=== PATIENT | male | born 1965 | race Caucasian/White ===

== ENCOUNTER 2016-07-28 13:45 | Inpatient (IN) | payer OTHER ==
[~2016-07-28] VITALS: Ht 177.8 cm; Wt 86.7 kg
[~2016-07-28 13:45] MED LIST: GABAPENTIN800 MG PO; MIXED AMPHETAMI30 M1 PO; REGLAN10 MG PO; SUBOXONE 8 MG-21 FIL PO
--- NOTE | 2016-07-28 13:55 | NUR ---
REQUESTING DETOX OFF HEROIN, STATES "I WANT TO ". HAS NO SPECIFIC PLAN, DENIES HI. HAS BEEN USING HEROIN "OFF AN ON" X 30 YEARS, UP TO 10 BAGS PER DAY. DENIES OTHER DRUG ABUSE OF ALCOHOL. STATES HE LOST HIS JOB, INSURANCE AND BOTH PARENTS IN THE PAST 6 MONTHS. [id number] WITH PATIENT. LAST USED HEROIN YESTERDAY; 5 BAGS.
--- NOTE | 2016-07-28 14:35 | NUR ---
SECURITY AT BEDSIDE FOR WANDING PT CHANGED INTO BLUE SCRUBS
--- NOTE | 2016-07-28 15:03 | NUR ---
BLDS DRAWN AND SENT
[2016-07-28 15:04] LABS: ABSOLUTE BASOPHIL COUNT 0 /CUMM (0.0-0.2); ABSOLUTE EOSINOPHIL COUNT 0 /CUMM (0.0-0.7); ABSOLUTE GRANULOCYTE CT 6.8 /CUMM (1.4-6.5); ABSOLUTE LYMPH COUNT 1.4 /CUMM (1.2-3.4); ABSOLUTE MONOCYTE COUNT 0.5 /CUMM (0.10-0.60); BASOPHIL % 0.4 % (0.0-2.0); EOSINOPHIL % 0.3 % (0-5); HEMATOCRIT 46.6 % (42-52); MEAN CORPUSCULAR HGB 28.6 PG (27.0-31.0); MEAN CORPUSCULAR HGB CONC 33.6 G/DL (33.0-37.0); MEAN PLATELET VOLUME 8.4 FL (7.4-10.4); PLATELET COUNT 303 /CUMM (130-400); RBC DISTRIBUTION WIDTH 14.2 % (11.5-14.5); RED BLOOD CELL CT 5.49 /CUMM (4.70-6.10); WHITE BLOOD CELL COUNT 8.8 /CUMM (4.8-10.8)
--- NOTE | 2016-07-28 15:20 | NUR ---
DR WEIR AT BEDSIDE FOR EVAL
--- NOTE | 2016-07-28 15:21 | ED PSYCHIATRIC COMPLAINT ---
History of Present Illness General Chief Complaint: Psychiatric Related Complaint Stated Complaint: PT IS HERE FOR POSTIVE SI Source: patient, old records Exam Limitations: no limitations Vital Signs & Intake/Output Vital Signs & Intake/Output Vital Signs Date Time Temp Pulse Resp B/P B/P Pulse O2 O2 Flow FiO2 Mean Ox Delivery Rate 07/29 1429 97.0 80 18 130/74 98 Room Air 07/29 1130 96.9 74 18 135/76 98 Room Air 07/29 0931 98.0 78 18 132/76 97 Room Air 07/29 0725 97.4 80 18 151/86 99 Room Air 07/29 0532 97.4 66 20 142/82 99 07/29 0145 97.6 69 18 150/73 96 07/28 2345 97.2 75 18 158/75 96 07/28 2259 Room Air 07/28 1909 78 188/81 ED Intake and Output 07/29 0000 07/28 1200 Intake Total Output Total Balance Patient 185 lb Weight Weight Reported by Patient Measurement Method Triage Note: REQUESTING DETOX OFF HEROIN, STATES "I WANT TO ". HAS NO SPECIFIC PLAN, DENIES HI. HAS BEEN USING HEROIN "OFF AN ON" X 30 YEARS, UP TO 10 BAGS PER DAY. DENIES OTHER DRUG ABUSE OF ALCOHOL. STATES HE LOST HIS JOB, INSURANCE AND BOTH PARENTS IN THE PAST 6 MONTHS. [id number] WITH PATIENT. LAST USED HEROIN YESTERDAY; 5 BAGS. Triage Nurses Notes Reviewed? yes HPI: Patient presents for evaluation of severe depression and "I feel like hanging myself". Patient states he is severely depressed is a combination of heroin addiction, job loss, recent of father and his son leaving the area. He denies attempting suicide but states he has been preoccupied with it almost nonstop. He has been trying to self detox from heroin over the past 6 weeks or so but states he keeps using again. (CARMELLA ANTONY,MALCOLM Roque) Allergies Coded Allergies: escitalopram (Intermediate, Muscle tightness in jaw and legs 07/29/16) "I had 'lockjaw' from it after 2 weeks." Reconcile Medications No Known Home Medications (MALCOLM ROJAS DO) Past History Travel History Traveled to [place] past 21 day No Medical History Any Pertinent Medical History? see below for history Cardiovascular: hypertension Psychiatric: depression History of MRSA: No History of VRE: No History of CDIFF: No Surgical History Surgical History: non-contributory Psychosocial History Who do you live with Sister Services at Home None What is your primary language Omani Tobacco Use: Current Daily Use Daily Tobacco Use Amount/Type: => 5 Cigarettes daily ETOH Use: denies use Illicit Drug Use: denies illicit drug use Family History Family History, If Any: No Known Family History. Hx Contributory? No (CARMELLA ANTONY,MALCOLM Rouqe) Review of Systems Review of Systems Constitutional: Reports: no symptoms. EENTM: Reports: no symptoms. Respiratory: Reports: no symptoms. Cardiovascular: Reports: no symptoms. GI: Reports: no symptoms. Genitourinary: Reports: no symptoms. Musculoskeletal: Reports: no symptoms. Skin: Reports: no symptoms. Neurological/Psychological: Reports: see HPI. Hematologic/Endocrine: Reports: no symptoms. Immunologic/Allergic: Reports: no symptoms. All Other Systems: Reviewed and Negative (CARMELLA ANTONY,MALCOLM Roque) Physical Exam Physical Exam General Appearance: SEE BELOW Neurological/Psychiatric: no motor/sensory deficits (SEE BELOW) Comments: General: Alert, calm, cooperative Head: Normocephalic, atraumatic Eyes: Normal inspection, no nystagmus, EOMI Ears: Normal inspection Nose: Normal inspection Throat: Moist mucosa Neck: Supple, no goiter Heart: Regular rate and rhythm, no murmurs rubs or gallops Lungs: Clear to auscultation bilaterally with good air entry Abdomen: Soft nontender nondistended, normal bowel sounds Chest: Nontender Extremities: Normal range of motion grossly, mild tremors present, no cyanosis clubbing or edema of the upper extremities Neurologic: cranial nerves II through XII grossly intact, speech clear, gait normal Psychiatric: No apparent delusions or hallucinations, no pressured speech or thought blocking SAD PERSONS Done? DEFERRED TO CRISIS (CARMELLA ANTONY,MALCOLM Roque) Progress Differential Diagnosis: DEPRESSION, BIPOLAR DISORDER, OPIATE ADDICTION Plan of Care: Orders Procedure Date/time Status Regular Diet 07/29 D Active Regular Diet 07/29 B Complete Lab Add-on Test 07/29 1454 Active Patient Data - inpatient psych 07/29 1448 Active Admit to inpatient psych 07/29 1448 Active Continuous Observation Monitor 07/29 0749 Active Vital Signs 07/29 UNK Active Nursing Misc 07/29 UNK Active Alternative Nursing Therapy 07/29 UNK Active Activity/Ambulation 07/29 UNK Active Continuous Observation Monitor 07/28 1850 Active TSH REFLEX 07/28 1457 Complete Current Medications Sig/Scott Start time Last Medication Dose Stop Time Status Admin Clonidine 0.1 MG TID 07/29 1600 UNVr 07/29 (Catapres) 1527 Acetaminophen 650 MG Q6P PRN 07/29 1530 UNVr (Tylenol) Al Hydroxide/Mg 30 ML Q4-6 PRN PRN 07/29 1530 UNVr Hydroxide (Maalox Plus) Gabapentin 300 MG Q4P PRN 07/29 1530 UNVr (Neurontin) Magnesium Hydroxide 30 ML AT BEDTIME PRN 07/29 1530 UNVr (Milk Of Magnesia) Trazodone HCl 50 MG AT BEDTIME NEED.. 07/29 1530 UNVr (Desyrel) Multivitamins 1 TAB DAILY 07/29 1523 UNVr 07/29 (Theragran Vitamins) 1548 Clonidine 0.1 MG Q6P PRN 07/29 1515 UNVr (Catapres) Baclofen 10 MG Q6P PRN 07/29 1500 UNVr (Lioresal 10MG Tablet) Dicyclomine HCl 20 MG Q6P PRN 07/29 1500 UNVr (Bentyl) Nicotine 21 MG DAILY 07/29 1456 UNVr 07/29 (Nicoderm) 1527 Comments: 07/28/2016 6:57:34 PM patient has been evaluated by crisis who recommends treatment for drug withdrawal and reevaluation in the morning (there appeared to be no beds available this evening). 07/28/2016 8:15:38 PM patient signed out to Dr. Arteaga at shift manager of change. (CARMELLA ANTONY,MALCOLM Roque) Hand-Off Endorsed To: MALCOLM ROJAS DO Endorsed Time: 0700 Pending: consult (DEMETRIUS ANTONY,ANTHONY Dave) Departure Departure Disposition: STILL A PATIENT Condition: Stable Clinical Impression Primary Impression: Suicide ideation Secondary Impressions: Cocaine abuse, Heroin abuse Referrals: PATIENT HAS NO PRIMARY CARE DR (PCP/Family) Departure Forms: Customer Survey General Discharge Information (CARMELLA ANTONY,MALCOLM Roque) Departure Prescriptions: Current Visit Scripts No Known Home Medications Comments 07/29/16 4:33 PM The patient was signed out to me by Dr. Arteaga at 7 AM. He has been accepted for admission to Inpatient Psychiatry. (MALCOLM ROJAS DO)
--- NOTE | 2016-07-28 16:06 | NUR ---
PTS BROTHER IN LAW PHILLIP WOULD LIKE TO SPEAK TO CRISIS. [phone]
--- NOTE | 2016-07-28 19:10 | NUR ---
MEDICATED WITH ATIVAN AND CLONIDINE PER eMAR FOR INCREASE IN AGITATION AND ANXIETY. BROTHER IN LAW AT BEDSIDE
--- NOTE | 2016-07-28 19:36 | ED PSYCH CRISIS CONSULTATION ---
See Addendum Crisis Consult Basic Assessment Date of Consult: 07/28/16 Responsible Person/Accompanied By: Brother Insurance Authorization: Insurance #1: Insurance name: SELF-PAY Phone number: Policy number: Group number: Authorization number: n/a ED Provider: Patient's ED Provider: MALCOLM WEIR MD Primary Care Physician: Patient's PCP: PATIENT HAS NO PRIMARY CARE DR PCP's Phone Number: Current Psychiatrist: none Patient's Quote: "I feel like dying" Present Illness: Pt is a 50 year old male requesting detox from Heroin. Pt reports a history of heroin use, on and off, for the past 30 years. He was admitted to [facility] in 2010 for Opioid Dependence and has also participated in [facility] and OP repeated times from 2010 to 2014. Pt reports that his most recent relapse was about two years ago and that he has not been in either substance abuse or psychiatric treatment since then. Pt reports that in the last six months, he has also had a number of psychosocial stressors, including the loss of his job of five years, the loss of his health insurance, the deaths of both parents and his adult son moving to [place]. Pt. also reports that his girlfriend with whom he has been living for the past 10 years has told him that he cannot come back to live with her. His only support appears to be his brother who was here in the ED with him. Pt. reports that he started trying to detox on his own about six weeks ago, but only makes it about two days without using. He reports his last use was yesterday, about 5 bags worth. Pt. reports that he is currently going through withdrawals and feels achy, sick to his stomach and "cannot think straight". Pt does appear distracted, fidgety and somewhat agitated. Pt reports that although he has no thoughts of actually killing himself, he "feels like dying". Crisis also spoke to pt's girlfriend via telephone who says that if pt. does not get help, she thinks that he will kill himself. Pt denies any past suicide attempts. Patient's Address: [address] [place] [address] Other Phone Number: Who Do You Live With? Sister Family/Informants Interviewed: Girlfriend (Maria Del Rosario) [phone], also spoke with Brother about POC. Allergies - Coded Allergies: NO KNOWN ALLERGIES (11/20/10) Laboratory Results: Laboratory Tests 07/28/16 1612: Urine Opiates Screen > 4000.00 H, Methadone Screen 77, Barbiturate Screen < 60, Ur Phencyclidine Scrn 7.50, Amphetamines Screen 503, U Benzodiazepines Scrn < 85 , Urine Cocaine Screen > 1000 H, Urine Cannabis Screen 5.50 07/28/16 1457: Anion Gap 15, Estimated GFR > 60, BUN/Creatinine Ratio 8.0, Glucose 111 H, Calcium 9.7, Total Bilirubin 0.6, AST 26, ALT 37, Alkaline Phosphatase 55, Total Protein 7.8, Albumin 4.5, Globulin 3.3, Albumin/Globulin Ratio 1.4, CBC w Diff NO MAN DIFF REQ, RBC 5.49, MCV 85.0, MCH 28.6, RDW 14.2, MPV 8.4, Gran % 78.0 H , Lymphocytes % 15.9 L, Monocytes % 5.4, Eosinophils % 0.3, Basophils % 0.4, Absolute Granulocytes 6.8 H, Absolute Lymphocytes 1.4, Absolute Monocytes 0.5, Absolute Eosinophils 0, Absolute Basophils 0, PUBS MCHC 33.6, Serum Alcohol < 10.0 (GRETTA VIERA LCSW) Basic Assessment Date of Consult: 07/29/16 Responsible Person/Accompanied By: [id number], Insurance Authorization: Insurance #1: Insurance name: SELF-PAY Phone number: Policy number: Group number: Authorization number: [place] [id number] [facility] [id number] ED Provider: Patient's ED Provider: CARMELLA ANTONY,MALCOLM Roque, Otoniel Zee MD Primary Care Physician: Patient's PCP: PATIENT HAS NO PRIMARY CARE DR PCP's Phone Number: Chief Complaint: Suicidal ideation with vague plans Patient's Quote: "I'm afraid to kill myself, but I do not want to live" Present Illness: 50 M to ED 07/28/16, 1355 CC requesting heroin detox, and stating that he wants to , without plan. Multiple stressors including of both parents, loss of job, loss of health insurance, and probable loss of housing - house co-owned with his girlfriend, who does not want him back. The patient has been having worsening depression, and has had "visions of the sharri of my life." Prior suicide attempt by OD, per Winter MARTINO, in 2016. The [id number], to his sister Pat, states that he cannot control the images in his head, and is fearful that the patient will go through with suicide. The brother states that he is welcome to live with him, but has concerns. He is also willing to take the patient to appointments or to rehab/ [facility]. Patient's Address: [address] [place] [address] Other Phone Number: Who Do You Live With? Significant Other (Now barred from returning) Family/Informants Interviewed: BrotherJovon, 07/29/16. See collateral note., Winter DUNCAN, on 07/29/16 Current Medications - No Known Home Medications Laboratory Results: Laboratory Tests 07/28/16 1612: Urine Opiates Screen > 4000.00 H, Methadone Screen 77, Barbiturate Screen < 60, Ur Phencyclidine Scrn 7.50, Amphetamines Screen 503, U Benzodiazepines Scrn < 85 , Urine Cocaine Screen > 1000 H, Urine Cannabis Screen 5.50 07/28/16 1457: Anion Gap 15, Estimated GFR > 60, BUN/Creatinine Ratio 8.0, Glucose 111 H, Calcium 9.7, Total Bilirubin 0.6, AST 26, ALT 37, Alkaline Phosphatase 55, Total Protein 7.8, Albumin 4.5, Globulin 3.3, Albumin/Globulin Ratio 1.4, CBC w Diff NO MAN DIFF REQ, RBC 5.49, MCV 85.0, MCH 28.6, RDW 14.2, MPV 8.4, Gran % 78.0 H , Lymphocytes % 15.9 L, Monocytes % 5.4, Eosinophils % 0.3, Basophils % 0.4, Absolute Granulocytes 6.8 H, Absolute Lymphocytes 1.4, Absolute Monocytes 0.5, Absolute Eosinophils 0, Absolute Basophils 0, PUBS MCHC 33.6, Serum Alcohol < 10.0 (NORMA VILLA APRN) Addendum Addendum 50 M to ED 07/28/16 @ 1085 with CC reporting SI with vague plan and requesting detox from heroin. He was brought to the ED by his [id number], Jovon, [phone]. 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 He is not close to his step-father, Edgard Villavicencio, who lives in [place]. The patient goes to [employer] meetings, and has a sponsor in [place]. He does note drink alcohol, per his report. FPHx: Biological mother and maternal g'mother - depression. Biological father - alcohol use disorder/drugs. MSE: Patient seen today, 07/29/16 at 0810: A+OX4 Denies AVH, and presents no preethi delusions. Denies active SI/HI, but "I'm having visions of the end of my life. I'm afraid to kill myself, but I don't want to live." Endorses helplessness, hopelessness and worthlessness. He reports a history of opiate use disorder, ADHD, PTSD and severe depression. (DAISY BUTT,NORMA Chris) Past History Past Medical History Cardiovascular: hypertension Psychiatric: depression Past Surgical History Surgical History: non-contributory Psychosocial History Strengths/Capabilities: hx of employment, asking for help, support of brother and sister Physical Limitations (Interventions): none known Psychiatric Treatment History Psych Treatment Psychiatric Treatment Yes Inpatient Treatment Yes Outpatient Treatment Yes Location of Treatment IP - [facility]; OP - [facility] Reason for Treatment Depression, SI, Opioid Dependence, Opioid Withdrawal Dates of Treatment 2010 - 2014 Response to Treatment repeated relapses and detox's Diagnosis by History: Opiod Dependence, Substance-induced Mood D/O Substance Use/Abuse History Drug Use/Abuse Substances Used/Abused Yes Substance Used/Abused Heroin First Use 30 years Last Used yesterday How much used/taken 5 bags How often every two days For how long two years Route of use IV Substance Abuse Treatment Substance Abuse Treatment Past Substance Abuse TX Yes Inpatient Treatment Yes Outpatient Treatment Yes Location of Treatment [facility] IP, IOP and OP [place] Reason for Treatment Opioid Detox Dates of Treatment Multiple, last IP in 2010, last OP in 2014 Response to Treatment Repeated relapses Comments: n/a (GRETTA VIERA LCSW) Past Medical History Cardiovascular: hypertension Past Surgical History Surgical History: non-contributory Psychosocial History Strengths/Capabilities: Mechanical, artistic (draws, paints, carves) Physical Limitations (Interventions): None Psychiatric Treatment History Psych Treatment Psychiatric Treatment Yes Inpatient Treatment Yes Outpatient Treatment Yes Location of Treatment [facility] and IOP/OPS Reason for Treatment Depression PTSD ADHD Opiate use disorder Dates of Treatment 2010, 2014 Response to Treatment Improved for a short while Substance Use/Abuse History Drug Use/Abuse Substances Used/Abused Yes Substance Used/Abused Heroin 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 How often Daily Substance Abuse Treatment Substance Abuse Treatment Past Substance Abuse TX Yes Inpatient Treatment Yes Outpatient Treatment Yes Location of Treatment [place] August-October 2015 Reason for Treatment Opiate use disorder Response to Treatment No aftercare program, per GF, Winter Comments: Patient has difficulty in staying focused on treatment goals, per his report and family report (DAISY BUTT,NORMA Chris) Current Mental Status Mental Status Orientation: Person, Place, Situation Affect: Anxious, Sad Speech: WNL Neuro-vegetative: Anhedonia, Concentration Poor, Helpless, Sleep Disturbance Appearance Appearance- Dress/Hygiene: WNL Behaviors Thought Process: WNL Thought Content: WNL Memory: Impaired Insight: Fair SI/HI Risk Assessment Past Suicidal Ideation/Attempts Yes (thoughts and plan, no attempts) Current Suicidal Ideation/Att Yes (passive thoughts) Past Homicidal Ideation/Att: No Current Homicidal Ideation/Attempts No Degree of Intent: Thoughts/No Intent Danger To: Self Gravely Disabled: Poor Impulse Control, Poor Judgment Risk Factors: high anxiety/distress, SA/MH hospitalized, substance abuse, poor impulse control, male, limited support Lethality Ratin PTSD Checklist PTSD Done? patient declined ED Management Sitter: Yes Restraints: No (GRETTA VIERA LCSW) Mental Status Orientation: Person, Place, Situation Affect: Flat Speech: WNL Neuro-vegetative: Anhedonia, Appetite Decreased, Energy Decreased, Helpless, Loss of Interest, Sleep Disturbance Behaviors Thought Process: Irrational Thought Content: Thought Blocking Memory: Impaired Insight: Poor SI/HI Risk Assessment Past Suicidal Ideation/Attempts Yes Current Suicidal Ideation/Att Yes Past Homicidal Ideation/Att: No (Denies) Current Homicidal Ideation/Attempts No (Denies) Degree of Intent: Various plans, as reported by brother Danger To: Self Gravely Disabled: Lack of Insight, Poor Judgment Risk Factors: SA/MH hospitalized, substance abuse, isolate/no social support, lack of outcome concern, male, limited support Lethality Ratin PTSD Checklist PTSD Score: PTSD Score: Response Value Disturbing memories,thoughts,images of stressful experience? Moderately 3 Disturbing dreams of stressful experience from past? A little bit 2 Suddenly acting/feeling as if reliving stressful experience? Moderately 3 Unpleasant feeling when reminded of stressful experience? Quite a bit 4 Physical reactions when reminded of stressful experience? Moderately 3 Avoid thinking/talking of stressful exp. to avoid reactions? Extremely 5 Avoid activities/situations that remind of stressful exp.? Quite a bit 4 Trouble remembering important parts of stressful experience? Moderately 3 Loss of interest in things that you used to enjoy? Extremely 5 Feeling distant or cut off from other people? Extremely 5 Feeling emotionally numb/unable to love those close to you? Quite a bit 4 Feeling as if your future will somehow be cut short? Quite a bit 4 Trouble falling or staying asleep? Quite a bit 4 Feeling irritable or having angry outbursts? Moderately 3 Having difficulty concentrating? Extremely 5 Being super alert or watchful on guard? Quite a bit 4 Feeling jumpy or easily startled? Quite a bit 4 Total 65 ED Management Sitter: Yes Restraints: No (NORMA VILLA APRN) DSM5/PS Stressors/Medical Prob Diagnosis' (DSM 5, Stressors, Medical): F11.20 - Opiate Use D/O, severe, F32.9 - Unspecified Depression. Stressors - Unemployed, recent deaths of both parents, separation from son, recent relapse. Medical - HTN. Current GAF: 24 Comments: Pt recently relapsed on heroin, has multiple psycho-social stressors and is having passive SI. (GRETTA VIERA LCSW) Diagnosis' (DSM 5, Stressors, Medical): F11.20 Opiate use d/o severe F32.9 Depression, unspecified - multiple stressors. F43.10 PTSD By history and report ADHD Current GAF: 21 (NORMA VILLA APRN) Departure Disposition Psych Medical Clearance Date: 07/28/16 Medically Cleared at: 1725 Time Started: 1724 Time Ended: 1754 Psychiatrist Consulted: Lindsay ANTONY, Saida Disposition Established: 07/28/16 Time Disposition Established: 1754 Plan for Disposition - Modality: H/O in ED, re-eval in AM Facility: [facility] Contact: n/a Telephone: n/a Rationale for Disposition: Pt. expressed passive SI, has multiple stressors and is going through Opioid withdrawals. Pt is therefore at current risk of harm to self and needs admission. Since there are no beds available tonight, pt. will be h/o in ED and re-evaluated by Crisis in AM. Additional Instructions: n/a Referrals PATIENT HAS NO PRIMARY CARE DR (PCP/Family) (GRETTA VIERA LCSW) Disposition Psych Medical Clearance Date: 07/29/16 Time Started: 809 Time Ended: 1533 Disposition Established: 07/29/16 Time Disposition Established: 1533 Plan for Disposition - Modality: Inpatient Psychiatry Facility: [facility] Rationale for Disposition: Suicidal with plans including OD and cutting/exsanguination in bathroom Type of IP Admission: PEC Additional Instructions: Patient may sign in voluntarily. (NORMA VILLA APRN)
--- NOTE | 2016-07-28 19:45 | NUR ---
NICODERM PATCH 21MG APPLIED TO RIGHT UPPER INNER ARM PER EMAR. PT CALM AND COOPERATIVE IN HALLWAY. SITTER AT BEDSIDE.
--- NOTE | 2016-07-28 20:15 | NUR ---
PT SEATED ON STRETCHER IN HALLWAY. PT IS BEING CALM AND COOPERATIVE. SITTERS AT BEDSIDE.
--- NOTE | 2016-07-28 22:58 | NUR ---
PT MEDICATED WITH TRAZADONE 100MG FOR SLEEP. PT REQUESTING MOTRIN FOR SCIATICA PAIN.
--- NOTE | 2016-07-28 23:06 | NUR ---
chief lock operator evaluated pt. +SI and feeling hopeless. Pt is a holdover and reevaluated for inpatient admission.
--- NOTE | 2016-07-28 23:14 | NUR ---
PT MEDICATED WITH MOTRIN 600MG FOR BACK PAIN
--- NOTE | 2016-07-28 23:30 | NUR ---
ASSUMED CARE FROM KRAIG CLARKE
--- NOTE | 2016-07-29 00:08 | NUR ---
PT SLEEPING. RESP UNLABORED. NO APPARENT DISTRESS. SITTER AT BEDSIDE
--- NOTE | 2016-07-29 01:30 | NUR ---
PT SLEEPING. RESP UNLABORED. SITTER AT BEDSIDE.
--- NOTE | 2016-07-29 03:56 | NUR ---
PT SLEEPING. RESP UNLABORED. SITTER AT BEDSIDE
--- NOTE | 2016-07-29 05:51 | NUR ---
PT SLEEPING. EASILY AROUSED TO VERBAL STIMULATION. RESP UNLABORED. SITTER PRESENT
--- NOTE | 2016-07-29 07:23 | NUR ---
ASSUMED CARE AT THIS TIME , PT AWAKE AND ALERT SITTING UP ON STRETCHER EATING BREAKFAST AT THIS TIME, PT COMPLAINS OF FEELING "CRAPPY" STATES THAT HE IS WITHDRAWING FROM OPIODS. ALSO STATES THAT HE HAS 7/10 LOW BACK PAIN, STRETCHER BACK REPOSITIONED FOR COMFORT,
--- NOTE | 2016-07-29 07:34 | NUR ---
PT MEDICATED WITH MOTRIN 600 MG PO PER ORDER FOR LOW BACK PAIN
--- NOTE | 2016-07-29 08:36 | NUR ---
PT REMAINS AWAKE ALERT AND CALM AND COPERATIVE
--- NOTE | 2016-07-29 09:29 | NUR ---
PT REMAINS CALM AND COPERATIVE. STATES THAT HIS LOW BACK PAIN IS BETTER AFTER MEDICATION
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
--- NOTE | 2016-07-29 11:13 | NUR ---
PT AWAKE ALERT AND ORIENTED , SITTING UP ON STRETCHER EATING LUNCH , PT ASKING FOR ATIVAN AND CLONIDINE, DR ROJAS AWARE AND STATES THAT PT CAN HAVE THE CLONIDINE AT THIS TIME AND THAT HE WILL GO SPEAK WITH PT
--- NOTE | 2016-07-29 12:23 | NUR ---
PER CRISIS THEY ARE DOING A BEDSEARCH FOR PT AND THAT PT IS REQUESTING CLONIDINE. CRISIS MADE AWARE THAT PT WAS MEDICATED AROUND 11 AM WITH CLONIDINE. PT REMAINS CALM AND COPERATIVE FOR THIS NURSE
--- NOTE | 2016-07-29 13:38 | NUR ---
PT MEDICATED PER ORDER WITH ATIVAN 1 MG PO PER ORDER. PER BENNY FROM CRISIS PT IS NOW ON PEC
--- NOTE | 2016-07-29 14:07 | NUR ---
PT TO BE ADMITTED TO [facility] .
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
--- NOTE | 2016-07-29 15:41 | NUR ---
ASSUMED CARE OF THIS PT FROM TRICIA HAMLIN. PT CALM AND COOPERATIVE AT THIS TIME. PT MEDICATED WITH CLONIDINE 0.1MG AND NEW NICODERM 21MG PATCH APPLIED TO RIGHT UPPER INNER ARM. OLD PATCH REMOVED BY THIS RN. PT AWAITING TRANSFER DOWN TO [facility]. SITTER AT BEDSIDE FOR SAFETY.
--- NOTE | 2016-07-29 15:48 | NUR ---
PT GIVEN MULTIVITAMIN PER EMAR.
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
--- NOTE | 2016-07-29 19:18 | NUR ---
Pt is a 50 y/o male on PEC admit from the ED for cocaine and heroine abuse/depedence. Pt arrived a & o x4, flat, anxious and cooperative. Appearance and behavior appropriate. Pt verbalized the desire to get clean and look for a job. Pt is coherent and appears to have insight into his drug addiction. Pt states he has no medical history and has NKDA either. Oriented to the unit on q15 minutes checks for safety.
[2016-07-29 20:07] VITALS: BP 142/88
--- NOTE | 2016-07-30 04:46 | NUR ---
Slept well overnight, no complaints offered.
[2016-07-30 07:55] VITALS: BP 109/71
--- NOTE | 2016-07-30 11:02 | NUR ---
PT IS COMPLIANT AND COOPERATIVE WITH UNIT RULES. PT IS ISOLATIVE IN ROOM FOR MOST OF THE SHIFT. PT DOES COME OUT WHEN ASKED, FOR VITALS AND MEDS. PT MOOD IS STABLE WITH A CONSTRICTED AFFECT. PT IS NOT ATTENDING GROUPS. PT DENIES SI THOUGHTS.
[2016-07-30 12:12] VITALS: BP 95/54
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
--- NOTE | 2016-07-30 15:35 | SOCIAL WORKER PROG NOTE PSYCH ---
Social Work Progress Note Progress Note Pt reports he completed the application and was approved for [place] insurance and has a temp id. Pt reports he is not feeling well, he is antsy and impatient is withdrawing from opiates. Pt is on a PEC. Pt requesting to meet with the HARD CANDY SPINNER, he states "I always get cuckoo feeling when Im trying to get off the opiates, which is why I' m here". Pt reports he just bought a house and was doing well until relapse.
--- NOTE | 2016-07-30 15:47 | SOCIAL WORKER TX PLAN PSYCH ---
Treatment Plan - Please Document: - Evidence that there is ongoing collaboration between - the patient and the interdisciplinary team, - including the patient's active participation and - responsibility for engaging in the treatment regimen, - and that the treatment plan is individualized and - relevant to the patient's conditions. - Treatment plan should reflect documentation indicating - that all active therapeutic efforts are included. Strengths/Capabilities: hx of employment, asking for help, support of brother and sister Likes to do mechanical and woodworking; artistic. Physical Limitations (Interventions): none known Patient Identified Trmt Goals: "to feel right and get clean" Discharge Plan: Rehab/ Outpatient Problem/Goals #1 Problem #1: suicidal ideation Interventions: Learn ways to manage anxiety symptoms accordingly and identify coping skills to prevent suicidal ideation from occurring due to anxious/depressed feelings. Learn ways to manage medications accordingly and identify positive supports to manage unusual symptoms that may occur. Learn ways to manage depressive symptoms accordingly and identify positive supports to manage life stressors and mood fluctuations. Modalities: group/individual Problem/Goals #2 Problem #2: alcohol dependence/abuse Interventions: Learn ways to manage cravings to use substances accordingly and identify coping skills to prevent relapse from occurring due to anxious/depressed feelings. Modalities: group/individual DSM5/PS Stressors/Medical Prob Diagnosis' (DSM 5, Stressors, Medical): F32.9 Depression, unspecified - multiple stressors. F11.20 Opiate use d/o severe F43.10 PTSD Pt reports Hx ADHD Current GAF: 21 Treatment Team - Responsibilities of members of the treatment team include: - Medication Management- MD or FLYER BUILDER - Medication Administration and Monitoring- Nurse - Group Therapy- Occupational Therapist - 1:1 Therapy,Disch Planning,family involvement-Subscription Crew Leader
[2016-07-30 15:49] VITALS: BP 119/67
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
[2016-07-30 20:35] VITALS: BP 100/65
--- NOTE | 2016-07-30 22:02 | NUR ---
PATIENT ALERT AND ORIENTED X3, CALM AND COOPERATIVE; PATIENT REPORTS FEELING MUCH BETTER SINCE HIS MEDICATIONS WERE ADJUSTED TODAY WITH THE METHADONE TAPER BEING STARTED; HE ATTENDED AND PARTICIPATED IN WRAP UP GROUP; VITAL SIGNS WNL; NO WITHDRAWAL SYMPTOMS.
--- NOTE | 2016-07-31 06:34 | NUR ---
PATIENT SLEPT ALL NIGHT.
[2016-07-31 08:02] VITALS: BP 120/68
--- NOTE | 2016-07-31 08:18 | CP SOUTH PROGRESS NOTE PSYCH ---
Psych (Inpt) Progress Note Progress Note Include the following elements, when applicable: Involvement in the active treatment of the patient with behavioral observations of the patient and the patient's response to the treatment. Review of the ongoing treatment process in the context of the treatment plan. Indication of how multi-disciplinary staff members are carrying out the treatment plan. Plans for future interventions and recommendations for revision of the treatment plan. Liaison with other physicians/providers. Progress Note: I discussed this patient's progress to date, current mental status, treatment process in the context of the treatment plan, and discharge planning with staff/ team in the daily morning inpatient team meeting. I also met with the patient myself in individual session. S: "I'm feeling physically better today." O: Current Medications Sig/Scott Start time Last Medication Dose Route Stop Time Status Admin Acetaminophen 650 MG .STK-MED ONE 07/30 0855 DC PO 07/30 0856 Acetaminophen 650 MG Q6P PRN 07/29 1530 AC 07/30 PO 0901 Al Hydroxide/Mg 30 ML Q4-6 PRN PRN 07/29 1530 AC Hydroxide PO Baclofen 10 MG Q6P PRN 07/29 1500 AC 07/30 PO 2144 Clonidine 0.1 MG TID 07/29 1600 DC 07/30 PO 0901 Clonidine 0.1 MG Q6P PRN 07/29 1515 AC 07/30 PO 0704 Dicyclomine HCl 20 MG Q6P PRN 07/29 1500 AC 07/30 PO 0902 Fluoxetine HCl 10 MG 07/31 0800 AC 07/31 PO 0809 Gabapentin 400 MG 0800,1400,2000 07/30 2000 AC 07/31 PO 0809 Gabapentin 300 MG Q6-PRN PRN 07/30 1900 AC 07/30 PO 2145 Gabapentin 400 MG ONE TIME ONE 07/30 1800 DC 07/30 PO 07/30 1801 1756 Gabapentin 300 MG Q4P PRN 07/29 1530 DC 07/30 PO 0902 Ibuprofen 800 MG TID PRN 07/30 1345 AC 07/31 PO 0811 Magnesium Hydroxide 30 ML AT BEDTIME PRN 07/29 1530 AC PO Methadone HCl 10 MG 08/02 0800 AC PO 08/02 0801 Methadone HCl 20 MG 08/01 0800 AC PO 08/01 0801 Methadone HCl 30 MG 07/31 0800 DC 07/31 PO 07/31 0801 0810 Methadone HCl 40 MG ONE TIME ONE 07/30 1615 DC 07/30 PO 07/30 1616 1612 Multivitamins 1 TAB DAILY 07/29 1523 AC 07/31 PO 0809 Nicotine 21 MG DAILY 07/29 1456 AC 07/31 TOP 0809 Trazodone HCl 50 MG .STK-MED ONE 07/30 2238 DC PO 07/30 223 Trazodone HCl 50 MG AT BEDTIME NEED.. 07/29 2200 AC 07/30 PO 2244 Vital Signs Date Time Temp Pulse Resp B/P B/P Pulse O2 O2 Flow FiO2 Mean Ox Delivery Rate 07/31 0802 96.5 79 120/68 07/30 2035 98.0 76 100/65 07/30 1549 71 119/67 07/30 1212 86 95/54 07/30 0901 77 109/71 A: Chart, progress notes, labs, VS and medication list reveiwed. Vital signs within normal limits. No new lab results today. Met with patient this morning. Presented A&Ox3. Speech was normal in rate, tone, and volume. Affect was constricted, non-labile. Mood was "not bad." He reported feeling physically better than yesterday since initiation of Methadone taper - denied chills, restlessness, anxiety, insomnia, acute aches. Reported completing ADLs, improved appetite, and sleeping well overnight. He shared on the triggers which led to present hospitalization: the of his father in [place] 2 months ago from prostate and colon Levi; the of his mother in [place] 4 months ago from uterine CA; the departure of his 17-year old son to [place] with the patient's ex-; and the loss of his job 6 months ago which he had for 5 years and the subsequent losses of health insurance and unemployment. He reported that since these events, he has grown more isolative and resorted to polysubstance abuse; endorsing intermittent "dark visions/thoughts" of him hanging himself and cutting himself. He denied ever acting on these thoughts, denied prior suicide attempts and expressed a fear of suicide. He denied current passive and active suicidal ideation, plans or intent. Denied homicidal ideation. Denied auditory and visual hallucinations. Thought process was linear and goal directed, thought content was approproriate. Congition was grossly intact. Insight and judgement were fair. Checked in with patient later today, he reported tolerating Prozac well, denied untoward medication effects. He was agreeable to increasing to 20mg QAM tomorrow to further target depression. P: 1. Conitnue monitoring on unit for safety, mood, opiate withdrawal, and suicidal ideation. 2. Continue methadone taper as ordered. 3. Increase Prozac to 20mg tomorrow morning to further target depression. 4. Increase Gabapentin to 600mg TID for anxiety (from 400mg TID). 5. Dispo planning per primary team.
[2016-07-31 12:40] VITALS: BP 126/89
--- NOTE | 2016-07-31 13:02 | NUR ---
PT IS PRESENT ON UNIT AND SOCIAL WITH PEERS AND STAFF, CAN BE LOUD AT TIMES BUT OVERALL APPROPRIATE THUS FAR, MOOD IS STABLE WITH FULL RANGE AFFECT, VSS, HAS ATTENDED GROUPS ALL DAY, REPORTED IN PLANNING MEETING "ALRIGHT" MOOD WITH HIS MOOD IMPROVING, GOAL IS "BE POSITIVE AROUND NEGATIVE PEOPLE", + APPETITE ABD SLEEP.
--- NOTE | 2016-07-31 14:19 | SOCIAL WORKER PROG NOTE PSYCH ---
Social Work Progress Note Progress Note Pt signed release and would like to have his sister and brother attend family session. I will call to arrange. Pt states he is heavily involved in AA, but has lied, and feels bad about it, has a sponsor and would like another one that is closer to him. Pt states his parents , his father only a few months ago, and his Mother months before that. His son is 17 and they do not have the relationship the pt would like. He has some relationship issues. He has been abusing substances opiates and cocaine on and off for years, he also has ADHD, and that can be tricky when it comes to med management, as he puts it "those medications work", pt has a hx of getting methadone and suboxone off the street to detox as needed. He is feeling depressed, disorganized and unclear at this time.
[2016-07-31 16:25] VITALS: BP 123/77
[2016-07-31 20:04] VITALS: BP 145/88
--- NOTE | 2016-07-31 21:11 | NUR ---
PT IS VISIBLE ON UNIT, SOCIALIZING WITH PEERS AND SPENDING TIME WITH VISITOR IN KITCHEN. COOPERATIVE AND COMPLIANT WITH STAFF. ATTENDED WRAP UP MEETING THIS EVENING. NO COMPLAINTS OR SI REPORTED. PT HAS A STABLE MOOD AND FULL RANGE AFFECT.
--- NOTE | 2016-08-01 05:57 | NUR ---
PRN TRAZADONE 50 X 2. PT APPEARED TO SLEEP AFTER. PT HYPOMANIC.
[2016-08-01 08:04] VITALS: BP 127/76
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
[2016-08-01 12:27] VITALS: BP 120/79
--- NOTE | 2016-08-01 14:37 | SOCIAL WORKER PROG NOTE PSYCH ---
Social Work Progress Note Progress Note LAMONTE CHAVEZ [id number] 1965 LAMONTE CHAVEZ [id number] Pended Authorization # Client Authorization # Type of Request [id number] CONCURRENT Date of Admission/ Start of Services Requested From Submission Date 07/29/2016 08/01/2016 08/01/2016 Met with pt he is concerned about his relationship and is thinking he could return there on temporary basis and work on saving money becoming independent and trying to live on his own. Pt is expressing racing thoughts and intermittent feelings of si, did not sleep well last night. Pt agreeable to try [facility], he prefers to go there in case he ends up staying with his sister who lives in [place]. Pt not interested in IOP.
[2016-08-01 16:08] VITALS: BP 145/75
--- NOTE | 2016-08-01 16:25 | CP SOUTH PROGRESS NOTE PSYCH ---
Psych (Inpt) Progress Note Progress Note Progress Note: I discussed this patient's progress to date, current mental status, treatment process in the context of the treatment plan, and discharge planning with staff/ team in the daily morning inpatient team meeting. I also met with the patient myself in individual session. SUBJECTIVE: "The last 2 nights I haven't been able to sleep." OBJECTIVE: Current Medications Sig/Scott Start time Last Medication Dose Route Stop Time Status Admin Acetaminophen 650 MG Q6P PRN 07/29 1530 AC 07/30 PO 0901 Al Hydroxide/Mg 30 ML Q4-6 PRN PRN 07/29 1530 AC Hydroxide PO Baclofen 10 MG Q6P PRN 07/29 1500 AC 07/31 PO 2246 Clonidine 0.1 MG Q6P PRN 07/29 1515 AC 07/31 PO 2245 Dicyclomine HCl 20 MG Q6P PRN 07/29 1500 AC 07/30 PO 0902 Fluoxetine HCl 20 MG 0808/01 0800 AC 08/01 PO 0818 Gabapentin 600 MG 0800,1400,07/31 2000 AC 08/01 PO 1321 Gabapentin 200 MG Q8P PRN 07/31 1630 AC PO Ibuprofen 800 MG TID PRN 07/30 1345 AC 08/01 PO 0818 Magnesium Hydroxide 30 ML AT BEDTIME PRN 07/29 1530 AC PO Methadone HCl 10 MG 08/02 0800 AC PO 08/02 0801 Methadone HCl 20 MG 08/01 0800 DC 08/01 PO 08/01 0801 0818 Multivitamins 1 TAB DAILY 07/29 1523 AC 08/01 PO 0818 Nicotine 21 MG DAILY 07/29 1456 AC 08/01 TOP 0817 Trazodone HCl 100 MG AT BEDTIME 08/01 2200 UNVr PO Trazodone HCl 50 MG .STK-MED ONE 07/31 2324 DC PO 07/31 2325 Trazodone HCl 50 MG AT BEDTIME NEED.. 07/29 220 DC 07/31 PO 2330 Vital Signs Date Time Temp Pulse Resp B/P B/P Pulse O2 O2 Flow FiO2 Mean Ox Delivery Rate 08/01 1608 89 145/75 08/01 1227 91 120/79 08/01 0804 96.4 74 127/76 07/31 2245 145/88 08/01 2003 97.8 78 145/88 07/31 1625 88 123/77 ASSESSMENT: Patient reports that he is now doing well, denies depression, denies suicidal ideation. 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 Reports tolerating methadone taper well, would like taper to continue at 5 mg after tomorrow's 10 mg dose. Said he feels stopping at 10 mg would be too abrupt. Depression:0/10; Anxiety:8/10 (with 10 the worst.) Denies suicidal ideation, homicidal ideation, auditory hallucinations, visual hallucinations, paranoid ideation. Patient states and also believes that he will not kill himself. Speech is well articulated, goal-directed, average in rate, volume and tone. Cooperative, speech is somewhat pressured. Alert and oriented 3. The patient understands the risks/benefits/side effects of the medication and is agreeable to continue taking them. PLAN: Trazodone 100 mg at bedtime for sleep. Continue methadone taper. Continue with current management as patient is improving. Continue to provide support and encouragement.
[2016-08-01 20:11] VITALS: BP 143/80
--- NOTE | 2016-08-01 21:27 | NUR ---
PT IS VISIBLE ON UNIT, VERY SOCIAL WITH PEERS AND STAFF. ATTENDED AA AND WRAP UP MEETING THIS EVENING. COOPERATIVE AND COMPLIANT WITH STAFF. NO COMPLAINTS OR SI REPORTED. PT HAS A STABLE MOOD AND FULL RANGE AFFECT.
[2016-08-02 08:16] VITALS: BP 127/76
[2016-08-02 12:45] VITALS: BP 128/69
--- NOTE | 2016-08-02 13:13 | CP SOUTH PROGRESS NOTE PSYCH ---
Psych (Inpt) Progress Note Progress Note Include the following elements, when applicable: Involvement in the active treatment of the patient with behavioral observations of the patient and the patient's response to the treatment. Review of the ongoing treatment process in the context of the treatment plan. Indication of how multi-disciplinary staff members are carrying out the treatment plan. Plans for future interventions and recommendations for revision of the treatment plan. Liaison with other physicians/providers. Progress Note: I discussed this patient's progress to date, current mental status, treatment process in the context of the treatment plan, and discharge planning with staff/ team in the daily morning inpatient team meeting. I also met with the patient myself in individual session. OBJECTIVE: Current Medications Sig/Scott Start time Last Medication Dose Route Stop Time Status Admin Acetaminophen 650 MG Q6P PRN 07/29 1530 AC 07/30 PO 0901 Al Hydroxide/Mg 30 ML Q4-6 PRN PRN 07/29 1530 AC Hydroxide PO Baclofen 10 MG Q6P PRN 07/29 1500 AC 08/01 PO 2209 Clonidine 0.1 MG Q6P PRN 07/29 1515 AC 07/31 PO 2245 Dicyclomine HCl 20 MG Q6P PRN 07/29 1500 AC 07/30 PO 0902 Fluoxetine HCl 20 MG 08/01 0800 AC 08/02 PO 0815 Gabapentin 300 MG Q8P PRN 08/02 1730 UNVr PO Gabapentin 600 MG 0800,1400,07/31 2000 AC 08/02 PO 1306 Gabapentin 200 MG Q8P PRN 07/31 1630 DC PO Ibuprofen 800 MG .STK-MED ONE 08/02 1999 DC PO 08/01 2000 Ibuprofen 800 MG TID PRN 07/30 1345 AC 08/02 PO 1233 Magnesium Hydroxide 30 ML AT BEDTIME PRN 07/29 1530 AC PO Methadone HCl 5 MG 08/04 0800 AC PO 08/04 0801 Methadone HCl 5 MG 08/03 0800 AC PO 08/03 0801 Methadone HCl 10 MG 08/02 0800 DC 08/02 PO 08/02 0801 0817 Multivitamins 1 TAB DAILY 07/29 1523 AC 08/02 PO 0815 Nicotine 21 MG DAILY 07/29 1456 AC 08/02 TOP 0816 Trazodone HCl 100 MG AT BEDTIME 08/01 2200 AC 08/01 PO 2208 Vital Signs Date Time Temp Pulse Resp B/P B/P Pulse O2 O2 Flow FiO2 Mean Ox Delivery Rate 08/02 1245 75 128/69 08/02 0816 97.7 76 127/76 08/01 2010 98.2 80 143/80 08/01 1608 89 145/75 ASSESSMENT: Chart, progress notes, labs, VS, and medication list reviewed. Vital signs within normal limits. No new labs results today. Met with patient this afternoon. Speech was normal in rate, tone and volume. Eye contact was appropriate. He appeared fidgety in seat. He had no complaints. Reported tolerating Methadone taper well to date; he expressed concern about dropping off at 10mg today. We agreed to extend his taper over the weekend, 5mg daily. He shared having a disappointing conversation with his girlfriend who had shared with her friends, neighbors, family, and some of the patient's friends that he presently is hospitalized. He expressed feeling angry about this and worried that this might effect him finding future work. Depression: 0/10 (10 being the worst). Anxiety: 8/10 (10 being the worst), denied an increase in anxiety since starting prozac. Informed patient of order for prn Gabapentin, in addition to standing Gabapentin for anxiety. He denied SI, HI, plans or intent. Denied AVH, PI. There was no evidence of delusions. Reported his sleep and appetite were good. Patient was initially resistent to pursuing IOP post-dsicharge, however then expressed he would consider a Methadone IOP. Informed patient that I would speak to SW about program options. PLAN: 1. Continue monitoring for safety, suicidal ideation, mood, withdrawal. 2. Continue current medications. 3. Continue Methadone taper as ordered. 4. Offer Gabapentin 300mg Q8H prn for anxiety. 5. Dispo planning per primary team.
--- NOTE | 2016-08-02 14:03 | NUR ---
PT IS COMPLIANT AND COOPERATIVE. MOOD IS STABLE WITH A FULL RANGE OF AFFECT. PT DENIES SI AT THIS TIME, NO COMPLAINTS OFFERED. PT IS PRESENT IN THE COMMUNITY AND INTERACTING WELL WITH PEERS AND STAFF. PT IS ATTENDING GROUPS. VITALS ARE STABLE, APPETITE IS GOOD.
--- NOTE | 2016-08-02 15:50 | SOCIAL WORKER PROG NOTE PSYCH ---
Social Work Progress Note Progress Note Faxed clincal referral to [facility] and awaiting a call back for an appointment, Pt continues to feel edgy, antsy and feels mood is the same. "Im accepting, and I've had a lot fo lose". Pt states he is trying to get clarity and learn how to feel calm, he reports he has noticed this his whole life, everyone in the AA rooms, will be sitting still, and Im wansering the room, or tapping etc. , he rpeorts Im always moving. "Im looking for answers, but I dont know what is going to help". Left a voice message for siblings requesting them to be involved in tx, i.e. family meeting.
[2016-08-02 16:07] VITALS: BP 131/90
--- NOTE | 2016-08-02 16:41 | SOCIAL WORKER PROG NOTE PSYCH ---
Social Work Progress Note Progress Note Pt has an intake appointment at [facility] on August 12 at 9:[address] [place] [address]
[2016-08-02 20:05] VITALS: BP 143/77
--- NOTE | 2016-08-02 21:51 | NUR ---
PT IS CALM, COOPERATIVE WITH STAFF AND PEERS, AND COMPLIANT WITH UNIT RULES. PT IS OFTEN IN [place], INTERACTING WELL WITH OTHERS. MOOD IS STABLE, AFFECT IS EUTHYMIC TO FULL RANGE, COMMUNICATION IS ORGANIZED AND APPEARS NORMAL IN ALL RESPECTS, AND APPETITE IS NORMAL. PT DENIES SI AT THIS TIME.
--- NOTE | 2016-08-03 06:32 | NUR ---
PATIENT WAS UP TO BATHROOM TWICE, BUT SLEPT MOST OF THE NIGHT; SHE WAS GIVEN MAALOX FOR INDIGESTION AT MIDNIGHT WITH GOOD EFFECT.
[2016-08-03 07:59] VITALS: BP 129/78
[2016-08-03 12:14] VITALS: BP 123/71
--- NOTE | 2016-08-03 13:10 | NUR ---
PT IS COMPLIANT AND COOPERATIVE WITH UNIT RULES. PT IS OUT IN THE COMMUNITY ITNERACTING WELL WITH STAFF AND PEERS. PT IS ACTIVE IN GROUPS. PT MOOD IS STABLE WITH A FULL RANGE AFFECT. PT DENIES SI THOUGHTS.
--- NOTE | 2016-08-03 14:34 | CP SOUTH PROGRESS NOTE PSYCH ---
Psych (Inpt) Progress Note Progress Note Include the following elements, when applicable: Involvement in the active treatment of the patient with behavioral observations of the patient and the patient's response to the treatment. Review of the ongoing treatment process in the context of the treatment plan. Indication of how multi-disciplinary staff members are carrying out the treatment plan. Plans for future interventions and recommendations for revision of the treatment plan. Liaison with other physicians/providers. Progress Note: Pt notes that doing "OK" overall. Ask relevant questions about medications. Notes night sweats nice release from prision years ago that drench the sheets. Denies weight loss, poor appetite. Otherwise, denies SI or HI. Denies AVHs. Current Medications Sig/Scott Start time Last Medication Dose Route Stop Time Status Admin Acetaminophen 650 MG Q6P PRN 07/29 1530 AC 07/30 PO 0901 Al Hydroxide/Mg 30 ML .STK-MED ONE 08/02 2357 DC Hydroxide PO 08/02 2358 Al Hydroxide/Mg 30 ML .STK-MED ONE 08/02 1821 DC Hydroxide PO 08/02 1822 Al Hydroxide/Mg 30 ML Q4-6 PRN PRN 07/29 1530 AC 08/03 Hydroxide PO 0003 Baclofen 10 MG Q6P PRN 07/29 1500 AC 08/02 PO 2246 Clonidine 0.1 MG Q6P PRN 07/29 1515 AC 07/31 PO 2245 Dicyclomine HCl 20 MG Q6P PRN 07/29 1500 AC 07/30 PO 0902 Fluoxetine HCl 20 MG 08/01 0800 AC 08/03 PO 0804 Gabapentin 300 MG Q8P PRN 08/02 1730 AC PO Gabapentin 600 MG 0800,1400,07/31 2000 AC 08/03 PO 1334 Gabapentin 200 MG Q8P PRN 07/31 1630 DC PO Ibuprofen 800 MG TID PRN 07/30 1345 AC 08/03 PO 0806 Magnesium Hydroxide 30 ML AT BEDTIME PRN 07/29 1530 AC PO Methadone HCl 5 MG 08/04 0800 AC PO 08/04 0801 Methadone HCl 5 MG 08/03 0800 DC 08/03 PO 08/03 0801 0805 Multivitamins 1 TAB DAILY 07/29 1523 AC 08/03 PO 0804 Nicotine 21 MG DAILY 07/29 1456 AC 08/03 TOP 0805 Trazodone HCl 100 MG AT BEDTIME 08/01 2200 AC 08/02 PO 2246 Tuberculin PPD 0.1 ML ONCE ONE 08/03 1400 DC ID 08/03 1401 Vital Signs Date Time Temp Pulse Resp B/P B/P Pulse O2 O2 Flow FiO2 Mean Ox Delivery Rate 08/03 1214 82 123/71 08/03 0759 97.4 81 129/78 08/02 2004 97.1 115 143/77 08/02 1607 90 131/90 MSE Appears younger than stated age. Cooperative behavior, good, poor eye contact. Nl speech rate and prosody though somewhat rapid. Slight psychomotor agitation. Mood OK Affect slightly irritable, constricted, appropriate, non-liable. Linear and goal directed thought process. Denies SI or HI. Does not appear to be responding to internal stimuli. Denies AVHs, paranoia, or delusions. I/J: limited A/P: Pt with MDD, PTSD, OUD with improved mood. - Concern given that nightsweats started s/p incarceration for TB. PPD. Also adding testosterone level given age. - Continue current medication regimen - Encourage groups
[2016-08-03 15:51] VITALS: BP 147/94
--- NOTE | 2016-08-03 18:40 | NUR ---
PT HAS BEEN COMPLIANT AND COOPERATIVE WITH UNIT RULES. PT HAS BEEN OUT IN THE COMMUNITY ITNERACTING WELL WITH STAFF AND PEERS. PT MOOD IS STABLE WITH A FULL RANGE AFFECT. PT DENIES SI THOUGHTS AT THIS TIME.
[2016-08-03 20:05] VITALS: BP 146/98
--- NOTE | 2016-08-04 05:19 | NUR ---
PATIENT UP TO BATHROOM TWICE, OTHERWISE SLEPT ALL NIGHT.
[2016-08-04 08:05] VITALS: BP 116/68
--- NOTE | 2016-08-04 11:36 | CP SOUTH PROGRESS NOTE PSYCH ---
Psych (Inpt) Progress Note Progress Note Include the following elements, when applicable: Involvement in the active treatment of the patient with behavioral observations of the patient and the patient's response to the treatment. Review of the ongoing treatment process in the context of the treatment plan. Indication of how multi-disciplinary staff members are carrying out the treatment plan. Plans for future interventions and recommendations for revision of the treatment plan. Liaison with other physicians/providers. Progress Note: Pt notes that slept well except for night sweats. Sheets and shirt noted to be wet/damp on inspection. Denies SI or HI. Denies any medical s/s. Current Medications Sig/Scott Start time Last Medication Dose Route Stop Time Status Admin Acetaminophen 650 MG Q6P PRN 07/29 1530 AC 07/30 PO 0901 Al Hydroxide/Mg 30 ML .STK-MED ONE 08/03 2001 DC Hydroxide PO 08/03 2002 Al Hydroxide/Mg 30 ML Q4-6 PRN PRN 07/29 1530 AC 08/03 Hydroxide PO 2006 Baclofen 10 MG Q6P PRN 07/29 1500 AC 08/02 PO 2246 Clonidine 0.1 MG Q6P PRN 07/29 1515 AC 07/31 PO 2245 Dicyclomine HCl 20 MG Q6P PRN 07/29 1500 AC 07/30 PO 0902 Fluoxetine HCl 20 MG 08/01 0800 AC 08/04 PO 0809 Gabapentin 300 MG Q8P PRN 08/02 1730 AC 08/04 PO 1133 Gabapentin 600 MG 0800,1400,2000 07/31 2000 AC 08/04 PO 0809 Ibuprofen 800 MG .STK-MED ONE 08/03 1648 DC PO 08/03 1649 Ibuprofen 800 MG TID PRN 07/30 1345 AC 08/04 PO 0809 Magnesium Hydroxide 30 ML AT BEDTIME PRN 07/29 1530 AC PO Methadone HCl 5 MG 0800 08/04 0800 DC 08/04 PO 08/04 0801 0809 Multivitamins 1 TAB DAILY 07/29 1523 AC 08/04 PO 0809 Nicotine 21 MG DAILY 07/29 1456 AC 08/04 TOP 0809 Trazodone HCl 100 MG AT BEDTIME 08/01 2200 AC 08/03 PO 2335 Tuberculin PPD 0.1 ML ONCE ONE 08/03 1400 DC 08/03 ID 08/03 1401 1735 Laboratory Tests 04/30 0615 Chemistry Total Testosterone (71.8 - 623 ng/dL) 605.0 Vital Signs Date Time Temp Pulse Resp B/P B/P Pulse O2 O2 Flow FiO2 Mean Ox Delivery Rate 08/04 804 96.4 87 116/68 08/03 2004 97.4 88 146/98 08/03 1551 85 147/94 08/03 1214 82 123/71 MSE Appears younger than stated age. Cooperative behavior, good, poor eye contact. Nl speech rate and prosody though somewhat rapid. Slight psychomotor agitation. Mood OK, I'm good Affect less irritable, constricted, appropriate, non-liable. Linear and goal directed thought process. Denies SI or HI. Does not appear to be responding to internal stimuli. Denies AVHs, paranoia, or delusions. I/J: limited A/P: Pt with MDD, PTSD, OUD with improved mood. - Concern given that nightsweats started s/p incarceration for TB. PPD placed on 08/03. - Testosterone level normal for age, making male menupause less likely - Of note, pt has family hx of prostate and colon cancer; has not had colonscopy as does not f/u with PMD usually. Denied melena, BRBPR. CBC wnl except for slight increase in granulocytes % and absolute grans though not significantly elevated. TSH wnl. - Continue current medication regimen - Encourage groups
[2016-08-04 12:22] VITALS: BP 127/66
--- NOTE | 2016-08-04 13:11 | NUR ---
PT IS COMPLIANT AND COOPERATIVE WITH UNIT RULES. PT IS OUT IN THE COMMUNITY INTERACTING WELL WITH STAFF AND PEERS. PT IS ACTIVE IN GROUPS. PT MOOD IS STABLE WITH A FULL RANGE AFFECT. PT DENIES SI THOUGHTS.
[2016-08-04 15:50] VITALS: BP 134/82
[2016-08-04 20:10] VITALS: BP 143/93
--- NOTE | 2016-08-04 22:52 | NUR ---
Pt is present within the community and social with peers and staff, can be loud at times but appears to be part of his personality and is overall pleasant, cooperative, mood stable with full range affect, VSS, compliant with treatment and medication.
--- NOTE | 2016-08-05 06:19 | NUR ---
PATIENT WAS UP TO THE BATHROOM THREE TIMES, OTHERWISE APPEARED TO SLEEP.
[2016-08-05 07:53] VITALS: BP 128/82
--- NOTE | 2016-08-05 11:53 | SOCIAL WORKER PROG NOTE PSYCH ---
Social Work Progress Note Progress Note Voice message left for Pt's sister Pat requesting a call back to schedule a family meeting.
[2016-08-05 12:12] VITALS: BP 129/82
--- NOTE | 2016-08-05 14:17 | SOCIAL WORKER PROG NOTE PSYCH ---
Social Work Progress Note Progress Note Pt continues to manage withdrawl symptoms does report he feels pretty sick today , and complains of relationship issues and concerns, pt encouraged to seek out therapy and was referred to [facility] pt is agreeable. Pt is labile, tangential and reports staying sober is the most important thing for him upon discharge. Tried to connect and left messages for his sister and brother for a family session. * Family attitudes * Community resource contacts and liaison with other clinicians/agencies
--- NOTE | 2016-08-05 14:32 | NUR ---
PT HAS BEEN WITHDRAWN AND ISOLATIVE IN ROOM MOST OF DAY- C/O "NOT FEELING WELL". PT DENIES SI AT THIS TIME, NO COMPLAINTS OFFERED. PT IS INTERACTING WTIH OTHERS WHEN PRESENT ON UNIT. PT IS ATTENDING SOME GROUPS. VITALS ARE STABLE, APPETITE IS GOOD.
[2016-08-05 16:12] VITALS: BP 127/92
--- NOTE | 2016-08-05 16:17 | SOCIAL WORKER PROG NOTE PSYCH ---
Social Work Progress Note Progress Note LAMONTE CHAVEZ [id number] 1965 LAMONTE CAHVEZ [id number] Pended Authorization # Client Authorization # Type of Request [id number] CONCURRENT Date of Admission/ Start of Services Requested From Submission Date 07/29/2016 08/05/2016 08/05/2016
--- NOTE | 2016-08-05 16:21 | SOCIAL WORKER PROG NOTE PSYCH ---
Social Work Progress Note Progress Note Pt concerned about pain, and safe ways to manage it, he states "I never thought I would actually want to be on some methadone, but now Im not sure, even just 20mg or something really helps". Pt states he feels sick, and unsure about how to proceed with sobriety and his relationship. Pt encouraged to call siblings to see if they will call me back to set up a family session. Pt tangential and unfocused.
--- NOTE | 2016-08-05 16:46 | CP SOUTH PROGRESS NOTE PSYCH ---
Psych (Inpt) Progress Note Progress Note Include the following elements, when applicable: Involvement in the active treatment of the patient with behavioral observations of the patient and the patient's response to the treatment. Review of the ongoing treatment process in the context of the treatment plan. Indication of how multi-disciplinary staff members are carrying out the treatment plan. Plans for future interventions and recommendations for revision of the treatment plan. Liaison with other physicians/providers. Progress Note: I discussed this patient's progress to date, current mental status, treatment process in the context of the treatment plan, and discharge planning with staff/ team in the daily morning inpatient team meeting. I also met with the patient myself in individual session. SUBJECTIVE: "I'm not having a good day, I'm withdrawaling." OBJECTIVE: Current Medications Sig/Scott Start time Last Medication Dose Route Stop Time Status Admin Acetaminophen 650 MG Q6P PRN 07/29 1530 AC 07/30 PO 0901 Al Hydroxide/Mg 30 ML Q4-6 PRN PRN 07/29 1530 AC 08/03 Hydroxide PO 2007 Baclofen 10 MG Q6P PRN 07/29 1500 AC 08/02 PO 2246 Clonidine 0.1 MG Q6P PRN 07/29 1515 AC 08/05 PO 1159 Dicyclomine HCl 20 MG Q6P PRN 07/29 1500 AC 07/30 PO 0902 Fluoxetine HCl 20 MG 08/01 0800 AC 08/05 PO 0830 Gabapentin 300 MG Q8P PRN 08/02 1730 AC 08/05 PO 1200 Gabapentin 600 MG 0800,1400,2000 07/31 2000 AC 08/05 PO 1343 Ibuprofen 800 MG TID PRN 07/30 1345 AC 08/05 PO 0830 Magnesium Hydroxide 30 ML AT BEDTIME PRN 07/29 1530 AC PO Methadone HCl 5 MG 0800 08/06 0800 UNVr PO 08/06 0801 Methadone HCl 5 MG ONE TIME ONE 08/05 1645 UNVr PO 08/05 1646 Multivitamins 1 TAB DAILY 07/29 1523 AC 08/05 PO 0830 Nicotine 21 MG DAILY 07/29 1456 AC 08/05 TOP 0830 Trazodone HCl 100 MG AT BEDTIME 08/01 2200 AC 08/04 PO 2245 Vital Signs Date Time Temp Pulse Resp B/P B/P Pulse O2 O2 Flow FiO2 Mean Ox Delivery Rate 08/05 1612 84 127/92 08/05 1212 96.7 82 129/82 08/05 1159 96.7 76 18 128/82 08/05 0753 96.7 76 128/82 08/04 2009 98.3 86 143/93 Laboratory Tests 08/04 0615 Chemistry Total Testosterone (71.8 - 623 ng/dL) 605.0 ASSESSMENT: Chart, progress notes, labs, VS and medication list were reviewed. PPD placed on 08/03/16 given c/o nightsweats and onset of symptom starting s/p incarceration. Met with patient this afternoon. He presented A&Ox3. Speech was normal in rate, tone and volume. Mood was markedly irritable. He appeared to have a low frustration tolerance towards nursing staff. He c/o of chills and nightsweats and associated this with w/d from methadone. Patient shared that his girlfriend has been visiting regularly on unit; stated that he will be returning home to her. Asked patient if he would be open to having a family meeting with her tomorrow. He agreed. Patient's girlfriend who was present on unit visiting stated she would come in tomorrow at 12PM for meeting. Depression: 4/10 (10 being the worst). Anxiety: 3/10 (10 being the worst). Denied racing thoughts, NMAs. Denied passive and active suicidal ideation, plans, intent. Denied homicidal ideation, auditory and visual hallucinations. Denied paranoid ideation. There was no evidence of internal stimulation or delusions. Thought process linear. Cognition grossly intact. Patient tolerating medications well, denied untoward medication effects. Mood overall improving despite irritability likely secondary to opiate withdrawal. PLAN: 1. Continue monitoring for safety, mood and suicidal ideation. 2. Family meeting scheduled with GF tomorrow at 12PM. 3. Will extend methadone taper x 2 days (5mg/daily) for reported w/d. 4. Continue with current psych meds. 5. Discharge tomorrow if family meeting goes well.
[2016-08-05 19:53] VITALS: BP 138/78
--- NOTE | 2016-08-05 22:47 | NUR ---
PT IS CALM, COOPERATIIVE WITH STAFF AND PEERS, AND COMPLIANT WITH UNIT RULES. PT IS OFTEN IN [place], INTERACTING WELL WITH OTHERS. MOOD IS STABLE, AFFECT IS EUTHTYMIC TO FULL RANGE, COMMUNICATION IS ORGANZIED AND APPEARS NORMAL IN ALL RESPECTS, AND APPETITE IS NORMAL. PT DENIES SIS AT THIS TIME.
--- NOTE | 2016-08-06 05:51 | NUR ---
PATIENT UP TO BATHROOM ONCE, OTHERWISE SLEPT ALL NIGHT.
[2016-08-06 07:58] VITALS: BP 123/78
--- NOTE | 2016-08-06 09:31 | NUR ---
PT IS SCHEDULED FOR D/C TODAY TO [facility]. HE STATES HIS FOLLOW UP WILL BE WITH [facility]. HE REPORTS AND DEMONSTRATES IMPROVEMENT IN HIS MOOD AND ABILITY TO FUNCTION. HE DENIES ANY THOUGHTS OF SUICIDE OR SELF HARM.PTS VITALS ARE STABLE AND HE EXHIBITS NO S/S WITHDRAWAL. HE BVERBALIZES A GOOD UNDERSTANDING OF HIS MED REGIME. PT IS GIVEN EDUCATION R/T MANAGING HIS MOOD DISORDER AND ON PREVENTING SUICIDE
--- NOTE | 2016-08-06 11:15 | SOCIAL WORKER PROG NOTE PSYCH ---
Social Work Progress Note Progress Note Pt has the following appointments: [facility] [address] 08/21/16 1:00p [facility] IOP on August 12 at 9:30 at [address] [facility] OP 08/22/16 Bridge appointment with Linette casanova
--- NOTE | 2016-08-06 11:58 | CP SOUTH PROGRESS NOTE PSYCH ---
Psych (Inpt) Progress Note Progress Note Include the following elements, when applicable: Involvement in the active treatment of the patient with behavioral observations of the patient and the patient's response to the treatment. Review of the ongoing treatment process in the context of the treatment plan. Indication of how multi-disciplinary staff members are carrying out the treatment plan. Plans for future interventions and recommendations for revision of the treatment plan. Liaison with other physicians/providers. Progress Note: I discussed this patient's progress to date, current mental status, treatment process in the context of the treatment plan, and discharge planning with staff/ team in the daily morning inpatient team meeting. I also met with the patient myself in individual session. OBJECTIVE: Current Medications Sig/Scott Start time Last Medication Dose Route Stop Time Status Admin Acetaminophen 650 MG .STK-MED ONE 08/05 2226 DC PO 08/05 222 Acetaminophen 650 MG Q6P PRN 07/29 1530 DCD 08/05 PO 2233 Al Hydroxide/Mg 30 ML Q4-6 PRN PRN 07/29 1530 DCD 08/03 Hydroxide PO 2006 Baclofen 10 MG Q6P PRN 07/29 1500 DCD 08/05 PO 2230 Clonidine 0.1 MG Q6P PRN 07/29 1515 DC 08/05 PO 2230 Dicyclomine HCl 20 MG Q6P PRN 07/29 1500 DCD 07/30 PO 0902 Fluoxetine HCl 20 MG 08/01 0800 DCD 08/06 PO 0757 Gabapentin 300 MG Q8P PRN 08/02 1730 DCD 08/05 PO 2231 Gabapentin 600 MG 0800,1400,2000 07/31 2000 DCD 08/06 PO 1501 Ibuprofen 800 MG TID PRN 07/30 1345 DCD 08/06 PO 0758 Magnesium Hydroxide 30 ML AT BEDTIME PRN 07/29 1530 DCD PO Methadone HCl 5 MG 0800 08/06 0800 DC 08/06 PO 08/06 0801 0758 Multivitamins 1 TAB DAILY 07/29 1523 DCD 08/06 PO 0757 Nicotine 21 MG DAILY 07/29 1456 DCD 08/06 TOP 0756 Trazodone HCl 100 MG AT BEDTIME 08/01 2200 DCD 08/05 PO 2229 Vital Signs Date Time Temp Pulse Resp B/P B/P Pulse O2 O2 Flow FiO2 Mean Ox Delivery Rate 08/06 1209 78 142/85 08/06 0758 96.2 72 123/78 08/05 2230 90 138/78 08/05 1953 98.6 90 138/78 ASSESSMENT: Chart, progress notes, VS, labs and medication list were reviewed. Vital signs within normal limits. No new lab results today. Met with patient this afternoon, on the date of discharge. He presented A&O x 3. Speech was normal in rate tone and volume. No psychomotor retardation or agitation. Behavior was calm and cooperative. Eye contact was appropriate. He had no complaints. He reported depression of 1/10 (10 being the worst) and anxiety of 3/10 (10 being the worst). He reported his sleep and appetite were good. He denied feeling hopeless, helpless, worthless and guilty. He denied passive and active suicidal ideation, plans and intent. He denied homicidal ideation. He stated and also believed he will not harm himself or others. He identified protective factors of his girlfriend and his brother. He expressed motivation to abstain from all substances and denied urges/cravings to use drugs and alcohol. He was agreeable to resume AA meetings and sponsorship with his present sponsor for support in sobriety. He denied auditory and visual hallucinations. He denied paranoid ideation. There was no evidence of preethi delusions. He reported tolerating medications well and denied untoward medication effects. He reported feeling safe and ready for discharge. A family meeting was held with the patient, his girlfriend (whom he live with), Deja Devlin LCSW and this typewriter operator automatic. Patient's girlfriend appeared supportive of patient, denied having any safety concerns regarding his discharge , and was in favor of discharge plan to [facility] for medication bridge appointment, and for patient to resume AA meetings and sponsor. Patient was also agreeable to plan. Please see Deja Devlin's for additional information regarding family meeting. PLAN: 1. Discharge to home into the care of girlfriend. 2. F/u with [facility] intake on 08/12/16 at 9:30AM. 3. F/u with OPS for bridge medication appointment with Linette Alston APRN on at 1PM. 4. F/u with PCP appointment with Dr. Real scheduled on 08/21/16 at 1PM. 5. Abstain from all substances. Patient strongly advised to attend daily AA meetings and resume work with his sponsor for support in sobriety. 6. All discharge prescriptions were e-prescribed to [facility]. Patient verbalized understanding of all discharge prescriptions. 7. In the event of an emergency, call 911/go to nearest emergency department. Patient verbalized understanding of instructions.
[2016-08-06 12:09] VITALS: BP 142/85
[2016-08-06] MEDS ORDERED: NICOTINE PATCH1 EAC3 TOP (13:05)
[2016-08-06] MEDS ORDERED: FLUOXETINE HCL20 M2 PO (13:05)
[2016-08-06] MEDS ORDERED: GABAPENTIN600 M1 PO (13:06)
[2016-08-06] MEDS ORDERED: ONE DAILY MULT1 EAC2 PO (13:07)
[2016-08-06] MEDS ORDERED: TRAZODONE HCL100 M1 PO (13:07)
--- NOTE | 2016-08-06 13:11 | DISCHARGE SUMMARY REPORT-PSYCH ---
Visit Information Visit Dates/Diagnosis' Admission Date: 07/29/16 Discharge Date: 08/06/16 Reason for Admission: Polysubstance abuse (heroin and cocaine) and passive suicidal ideation. Psy Discharge Primary Diag: Unspecified depressive disorder Psy Discharge Secondary Diag: ADHD by history; R/O Substance-induced depressive disorder; R/O PTSD; Opiate use disorder, severe; Stimulant use disorder, severe; Nicotine use disorder. Hospital Course Significant Lab Findings: Lab Urine Cocaine Screen > 1000 NG/ML H 07/28/16 1612 Urine Opiates Screen > 4000.00 NG/ML H 07/28/16 1612 Course Complications: None. Consultations: The patient was seen for admission history and physical by Dr. Brian Khan. Please see his note for additional information. Allergies: Coded Allergies: escitalopram (Intermediate, Muscle tightness in jaw and legs 07/29/16) "I had 'lockjaw' from it after 2 weeks." Hospital Course/TX Response: The patient was monitored on the unit for safety, mood, suicidal ideation and opiate withdrawal. He was started on a methadone taper which he completed successfully and without complication. He was restarted on Prozac 10mg daily which was increased to 20mg daily for depression. Gabapentin 300mg three times daily was started for anxiety which was increased to 600mg three times daily. Trazodone 100mg at bedtime was started for insomnia. Patient tolerated all medications well and denied untoward effects. During the hospital course, the patient's mood and affect improved. Suicidal ideation remitted. A family meeting was held with the patient, his girlfriend whom he lives with, Deja Devlin LCSW and this filing writer. The patient's treatment progress, medication regimen, level of safety, psychiatric and substance abuse history, and discharge planning were reviewed and discussed. The patient's girlfriend did not express any acute concerns regarding the patient's discharge. They were agreeable to work on healthy communication in their relationship and both were in favor of the patient's discharge plan to [facility] and continued daily AA meeting attendance/work with sponsor. On the date of discharge, 08/06/16, the patient presented A&O x 3. His speech was normal in rate tone and volume. No psychomotor retardation or agitation was noted. His behavior was calm and cooperative. Eye contact was appropriate. He had no complaints. He reported depression of 1/10 (10 being the worst) and anxiety of 3/10 (10 being the worst). He reported his sleep and appetite were good. He denied feeling hopeless, helpless, worthless and guilty. He denied passive and active suicidal ideation, plans and intent. He denied homicidal ideation. He stated and also believed he will not harm himself or others. He identified protective factors of his girlfriend and his brother. He expressed motivation to abstain from all substances and denied urges/cravings to use drugs and alcohol. He was agreeable to resume AA meetings and sponsorship with his present AA sponsor for support in sobriety. He denied auditory and visual hallucinations. He denied paranoid ideation. There was no evidence of preethi delusions. Thought process was goal-directed and linear. He reported tolerating medications well and denied untoward medication effects. He reported feeling safe and ready for discharge. Discharge HBIPS - Tobacco Use Treatment Offered Post DC Medications Offered: Script Given-See Med List Post DC Tobacco Treatment Plan: Refused Tobcco Tx Pgm - EtOH/Drug Use D/O Treatment Offered Post DC Medications Offered: Ref Med EtOH/Drug Use D/O Post DC EtOH/SubAbuse TX Plan: Other SubAbuse/Dual Pgm Program Appt Date: 08/12/16 Program Appt Time: 0930 Metabolic Screening - Screen if on a Neuroleptic Medication - Metabolic screening should include: - Blood Pressure, BMI, Glucose or Hgb A1c, & a - Lipid profile from within the past 365 days. Metabolic Screening ([X]) Not Applicable, patient not on a neuroleptic. OR () Patient on a neuroleptic(s) . Enter below results for Glucose or Hemoglobin A1C, and lipid panel if obtained during the last 365 days. BMI: 27.400 Blood Pressure: 142/85 Laboratory Results (If applicable): Discharge Instructions General Discharge Information Discharge Medications: Discharge Medications- (Dose, route, freq, indication): HOME MEDICATION LIST START taking these NEW Home Medications: Nicotine (Nicotine Dose: On the skin, DAILY for Qty: 20 Sent to Patch) 21 MG/24 HOUR 21 Milligram nicotine cessation Refills: 0 Pharm 1 PATCH.TD24 Apply 1 patch topically QAM and remove before HS. Gabapentin Dose: ORAL, THREE TIMES DAILY Qty: 60 Sent to (Gabapentin) 600 MG 600 Milligram for anxiety Refills: 0 Pharm 1 TABLET Take 1 tab po TID. Fluoxetine HCl Dose: ORAL, DAILY @8 AM for Qty: 20 Sent to (Fluoxetine HCl) 20 20 Milligram depression/anxiety Refills: 0 Pharm 1 MG CAPSULE Take 1 cap po QAM. Trazodone HCl Dose: ORAL, AT BEDTIME for Qty: 20 Sent to (Trazodone HCl) 100 100 Milligram insomnia Refills: 0 Pharm 1 MG TABLET Take 1 tab po QHS. Multivitamin (One Dose: ORAL, DAILY for VITAMIN Qty: 20 Sent to Daily Multivitamin) 1 Tablet SUPPORT Refills: 0 Pharm 1 1 EACH TABLET Take 1 tab po daily. 1: [id number], [address] [place] [address] Your Preferred Pharmacy [id number] [address] [place] [address] Multiple Neuroleptics: (X) Not Applicable OR Document below three failed attempts at monotherapy, or a plan to taper to monotherapy, or augmentation of Clozapine. () Patient's Diet: Regular. Patient's Activity: No restrictions. DC Disposition: Patient to return to home and girlfriend. Recommendations: The patient was advised to please take his medications as prescribed. He was advised to abstain from all substances, attend daily AA meetings and resume work with his AA sponsor. He was advised to attend all scheduled appointments (see in below referral section). He was advised that in the event of an emergency to call 911/go to nearest emergency department. Patient verbalized understanding of all instructions. Referred To: Post Discharge Referrals Provider Referral Service Date: 08/21/16 Referred To: [[facility]] [DR. REAL] Notes: [address], [place] (T) [phone] * Appointment scheduled on 08/21/16 at 1PM with PCP Dr. Real. Provider Referral Service Date: 08/12/16 Referred To: [[facility]] Notes: [address], [place] (T)[phone] *IOP intake scheduled on 08/12/16 at 9:30AM. Provider Referral Service Date: 08/22/16 Referred To: [[facility]] Notes: [facility] [address] [place] [address], [place] (t)[phone] * Medication bridge appointment scheduled on 08/22/16 at 1PM with Linette Alston APRN. Copies To: [facility]; Dr. Real; Linette Alston APRN
--- NOTE | 2016-08-06 13:23 | SOCIAL WORKER PROG NOTE PSYCH ---
Social Work Progress Note Progress Note Had a family session with pt and Winter, agreed to return to their home and create some healthy parameters in order to make for a safe and smooth transition. Pt denies si/hi/ah/vh and agrees with discharge planning and appointments.
== END 2016-08-06 16:00 | DRG 754 ==
LOC: ERH 13:45 → CP SOUTH 07-29 16:34 → ERHI 07-29 16:34 → EDBEDREQ 07-29 17:56 → CP SOUTH 07-29 18:32 → ENRESERV 07-29 23:59 → CP SOUTH 07-30 10:09
PROVIDERS: Emergency Medicine; ADMIT Psychiatry & Neurology Psychiatry
DX: F32.9 Major depressive disorder, single episode, unspecified (principal); F11.20 Opioid dependence, uncomplicated; F15.20 Other stimulant dependence, uncomplicated; F90.9 Attention-deficit hyperactivity disorder, unspecified type; Z72.0 Tobacco use
CPT/HCPCS: 36415; 80307; 84403; G0463; G0480

== ENCOUNTER 2016-09-03 16:06 | Emergency (ER) | payer OTHER ==
[~2016-09-03] VITALS: Ht 177.8 cm; Wt 83.9 kg
[~2016-09-03 16:06] MED LIST changes: +FLUOXETINE HCL20 M2 PO; +GABAPENTIN600 M1 PO; +NICOTINE PATCH1 EAC3 TOP; +ONE DAILY MULT1 EAC2 PO; +TRAZODONE HCL100 M1 PO
--- NOTE | 2016-09-03 18:24 | ED UPPER/LOWER EXTREMITY COMPL ---
History of Present Illness General Chief Complaint: Skin Rash/ Abcess Stated Complaint: ABCESS ON L ARM Source: patient Exam Limitations: no limitations Vital Signs & Intake/Output Vital Signs & Intake/Output Vital Signs Date Time Temp Pulse Resp B/P B/P Pulse O2 O2 Flow FiO2 Mean Ox Delivery Rate 09/03 2101 99.0 88 18 124/66 97 Room Air Room Air 09/03 1911 99.2 90 20 124/60 98 Room Air 09/03 1649 98.9 96 15 147/97 100 Room Air Allergies Coded Allergies: escitalopram (Intermediate, Muscle tightness in jaw and legs 07/29/16) "I had 'lockjaw' from it after 2 weeks." Reconcile Medications Amoxicillin 875 MG TABLET 1 TAB PO BID cellulitis/abscess Fluoxetine HCl 20 MG CAPSULE 20 MG PO 0800 depression/anxiety Take 1 cap po QAM. Gabapentin 400 MG CAPSULE 2 CAP PO TID MOOD (Reported) Ibuprofen (Advil Migraine) 200 MG CAPSULE 3-4 CAP PO BID PAIN (Reported) Lamotrigine 25 MG TABLET 1 TAB PO AD MOOD (Reported) Naltrexone HCl 50 MG TABLET 1 TAB PO DAILY MENTAL HEALTH (Reported) Nicotine (Nicotine Patch) 21 MG/24 HOUR PATCH.TD24 21 MG TOP DAILY nicotine cessation Apply 1 patch topically QAM and remove before HS. Sulfamethoxazole/Trimethoprim (Bactrim Ds Tablet) 800 MG-160 MG TABLET 1 TAB PO BID cellulitis/abscess Trazodone HCl 100 MG TABLET 100 MG PO AT BEDTIME insomnia Take 1 tab po QHS. Triage Note: PT TO ED FOR REDNESS AND SWELLING TO L ARM S/P IVDA HEROIN USE OVER LAST SEVERAL DAYS. Triage Nurses Notes Reviewed? yes Onset: Abrupt Duration: day(s):, constant, continues in ED Timing: recent history Severity: moderate, severe Pain/Injury Location: Left: Forearm. No Modifying Factors: none HPI: 50-year-old female comes in see emergency room for further evaluation of redness and swelling to his left forearm. Symptoms may going on for past month without worse over the past 4 days. Patient admits to IV drug use. Denies any fever chills vomiting. Denies any other associated symptoms. Sharp throbbing pain. Diffuse swelling. (SHAILA QUIROGA) Past History Travel History Traveled to [place] past 21 day No Medical History Any Pertinent Medical History? see below for history Neurological: NONE EENT: NONE Cardiovascular: hypertension Respiratory: NONE Gastrointestinal: NONE Hepatic: NONE Renal: NONE Musculoskeletal: Crush injury to right hand at work. 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 Hx Contributory? No (SHAILA QUIROGA) Review of Systems Review of Systems Constitutional: Reports: no symptoms. EENTM: Reports: no symptoms. Respiratory: Reports: no symptoms. Cardiovascular: Reports: no symptoms. Gastrointestinal/Abdominal: Reports: no symptoms. Genitourinary: Reports: no symptoms. Musculoskeletal: Reports: no symptoms. Skin: Reports: see HPI. Neurological/Psychological: Reports: no symptoms. Hematologic/Endocrine: Reports: no symptoms. Immunological: Reports: no symptoms. All Other Systems: Reviewed and Negative (SHAILA QUIROGA) Physical Exam Physical Exam General Appearance: well developed/nourished, mild distress Head: atraumatic Eyes: Bilateral: normal appearance. Ears, Nose, Throat: normal ENT inspection, hearing grossly normal Neck: normal inspection Cardiovascular/Respiratory: no respiratory distress Back: normal inspection Elbow Left: soft tissue swelling of left forearm, erythema, warmth, tenderness to palpation, approximately 10 cm in diameter, radial pulses 2+, awning finisher strength intact, Skin: intact, normal color, warm/dry Lymphatic: no anterior cervical von (SHAILA QUIROGA) Progress Differential Diagnosis: cellulitis, compartment syndrome, contusion, dislocation , DVT, fracture, septic arthritis, sprain, tendon injury, soft tissue foreign body, abscess, Plan of Care: Orders Procedure Date/time Status EXTREMETIES CULTURE 09/04 2103 Active BLOOD CULTURE 09/03 1801 Active WESTERGREN SED RATE 09/03 180 Complete C-REACTIVE PROTEIN 09/03 1801 Complete COMPREHENSIVE METABOLIC PANEL 09/03 1801 Complete CBC WITHOUT DIFFERENTIAL 09/03 1801 Complete Laboratory Tests 09/03/16 1824: Anion Gap 8, Estimated GFR > 60, BUN/Creatinine Ratio 7.8, Glucose 126 H, Calcium 8.9, Total Bilirubin 0.8, AST 30, ALT 38, Alkaline Phosphatase 52, C- Reactive Prot, Quant 6.9 H, Total Protein 6.5, Albumin 3.8, Globulin 2.7, Albumin/Globulin Ratio 1.4, CBC w Diff NO MAN DIFF REQ, RBC 4.25 L, MCV 86.7, MCH 29.1, RDW 13.4, MPV 9.0, Gran % 80.3 H, Lymphocytes % 12.2 L, Monocytes % 7.0, Eosinophils % 0.2, Basophils % 0.3, Absolute Granulocytes 9.3 H, Absolute Lymphocytes 1.4, Absolute Monocytes 0.8 H, Absolute Eosinophils 0, Absolute Basophils 0, PUBS MCHC 33.6, ESR Westergren 16 H Microbiology 09/03 2104 EXTREMITIE: Culture & Sensitivity - RECD 09/03 2104 EXTREMITIE: Gram Stain - RECD 09/03 1837 BLOOD: Blood Culture - RECD 09/04 1823 BLOOD: Blood Culture - RECD Diagnostic Imaging: Viewed by Me: Ultrasound. Discussed w/RAD: Ultrasound. Radiology Impression: EXAM TYPE: US - US-SUPERFICIAL IMAGING EXTREMI EXAMINATION : US SUPERFICIAL IMAGING, EXTREMITY CLINICAL INFORMATION: IV drug user. Swelling and pain. COMPARISON: None TECHNIQUE: Routine grayscale imaging through the right medial and temporal fossa was performed. FINDINGS: There is a complex fluid collection along the right medial antecubital fossa with surrounding edema and increased vascularity suggestive of an abscess. It measures 3.6 cm wide, 4.7 cm in craniocaudad length and 1.3 cm in AP dimension. IMPRESSION: Findings strongly suspicious for an abscess along the right medial antecubital fossa. DICTATED BY: KEIRY ANTONY,LISA DATE/TIME DICTATED:09/03/161900 Comments: 09/03/2016 9:12:21 PM Surgery consult and evaluated the patient. Patient clinically looks well. Nontoxic-appearing. In no apparent distress. Feels better after drainage. (CHEKO THURSTON,SHAILA) Departure Departure Disposition: HOME OR SELF CARE Condition: Stable Clinical Impression Primary Impression: Skin abscess Secondary Impressions: Cellulitis of left forearm Referrals: PATIENT HAS NO PRIMARY CARE DR (PCP/Family) Additional Instructions: Take Bactrim and amoxicillin as prescribed. follow-up with Dr. Shaffer the surgeon in 2 days in his office. If you cannot get in with him by the end of the week and wanted to return to the emergency room for a wound check. Please go over all results of today's visit with your primary care doctor. Contact your primary care doctor to let them know you were here in the emergency room. There may be nonspecific findings which may not be related to your visit today here in the emergency room but may require further evaluation and chronic monitoring by your primary care doctor. If you had a laceration today the chance of foreign body always remains. You should follow-up with your primary care doctor for recheck in 3-5 days for a wound check. If you had an x-ray done there is a chance that a fracture could have been missed on initial read and you should follow-up with your primary care doctor for repeat x-rays if symptoms persist. If your blood pressure was elevated here in the emergency room please have rechecked by her primary care doctor within the next 48 hours by your primary care doctor. If you were prescribed a narcotic here in the emergency room or any type of controlled substances you're not allowed to drive while taking this medication or operate any type of heavy machinery. Narcotics can make you feel lightheaded dizziness nausea and can cause constipation. You may need to tack picker a stool softener. Thank you for choosing [facility] emergency room. Please return to the emergency room immediately if you have any other concerns worsening of symptoms. Departure Forms: Customer Survey General Discharge Information Prescriptions: Current Visit Scripts Sulfamethoxazole/Trimethoprim (Bactrim Ds Tablet) 1 TAB PO BID #20 TAB Amoxicillin 1 TAB PO BID #20 TAB (SHAILA QUIROGA) PA/COSMETIC COUNSELOR Co-Sign Statement Statement: ED Attending supervision documentation- [] I saw and evaluated the patient. I have also reviewed all the pertinent lab results and diagnostic results. I agree with the findings and the plan of care as documented in the PA's/COSMETIC COUNSELOR's documentation. [X] I have reviewed the ED Record and agree with the PA's/COSMETIC COUNSELOR's documentation. [] Additions or exceptions (if any) to the PAs/COSMETIC COUNSELOR's note and plan are summarized below: [] (ORALIA ANTONY,JEFFREY Douglass) Procedures Incision and Drainage Site: left forearm Blade Size: 11 I & D Procedure: Yes: betadine prep, sterile drapes applied, sterile dressing applied, wick placed. Progress: 1% LAD, 60 mL injected, patient tolerated procedure well, Pati clamp used to break up adhesions, (SHAILA QUIROGA)
[2016-09-03 18:42] LABS: ABSOLUTE BASOPHIL COUNT 0 /CUMM (0.0-0.2); ABSOLUTE EOSINOPHIL COUNT 0 /CUMM (0.0-0.7); ABSOLUTE GRANULOCYTE CT 9.3 /CUMM (1.4-6.5); ABSOLUTE LYMPH COUNT 1.4 /CUMM (1.2-3.4); ABSOLUTE MONOCYTE COUNT 0.8 /CUMM (0.10-0.60); BASOPHIL % 0.3 % (0.0-2.0); EOSINOPHIL % 0.2 % (0-5); GRANULOCYTE % 80.3 % (42.2-75.2); HEMATOCRIT 36.8 % (42-52); MEAN CORPUSCULAR HGB 29.1 PG (27.0-31.0); MEAN CORPUSCULAR HGB CONC 33.6 G/DL (33.0-37.0); MEAN CORPUSCULAR VOLUME 86.7 FL (80.0-94.0); PLATELET COUNT 225 /CUMM (130-400); RBC DISTRIBUTION WIDTH 13.4 % (11.5-14.5); RED BLOOD CELL CT 4.25 /CUMM (4.70-6.10); WHITE BLOOD CELL COUNT 11.6 /CUMM (4.8-10.8)
--- NOTE | 2016-09-03 19:06 | ULTRASOUND REPORT ---
EXAMINATION: US SUPERFICIAL IMAGING, EXTREMITY CLINICAL INFORMATION: IV drug user. Swelling and pain. COMPARISON: None TECHNIQUE: Routine grayscale imaging through the right medial and temporal fossa was performed. FINDINGS: There is a complex fluid collection along the right medial antecubital fossa with surrounding edema and increased vascularity suggestive of an abscess. It measures 3.6 cm wide, 4.7 cm in craniocaudad length and 1.3 cm in AP dimension. IMPRESSION: Findings strongly suspicious for an abscess along the right medial antecubital fossa.
[2016-09-03] MEDS ORDERED: GABAPENTIN400 M2 PO (19:23)
[2016-09-03] MEDS ORDERED: NALTREXONE HCL50 M1 PO (19:24)
[2016-09-03] MEDS ORDERED: LAMOTRIGINE25 M3 PO (19:24)
[2016-09-03] MEDS ORDERED: ADVIL MIGRAINE200 M1 PO (19:25)
--- NOTE | 2016-09-03 20:18 | Cons- General Surgery ---
General Information and HPI Consulting Request Date of Consult: 09/03/16 Requested By: KARENA LUNA Reason for Consult: Abscess left forearm Source of Information: patient Exam Limitations: no limitations History of Present Illness: 50-year-old male with history of IV drug abuse, currently using IV heroin, last injected about 2-3 days ago, presents to the emergency department for evaluation of redness and swelling to his left forearm and elbow region. It is severe, throbbing, warm to palpation, worse with palpation. He denies any fever or flulike illness, nausea or vomiting or confusion. There is been no previous treatment thus far. He has history of IV drug abuse for over 30 years. He was found to have an abscess on evaluation on ultrasound and surgery was consulted. Allergies/Medications Allergies: Coded Allergies: escitalopram (Intermediate, Muscle tightness in jaw and legs 07/29/16) "I had 'lockjaw' from it after 2 weeks." Home Med List: Fluoxetine HCl 20 MG CAPSULE 20 MG PO 0800 depression/anxiety Take 1 cap po QAM. Gabapentin 400 MG CAPSULE 2 CAP PO TID MOOD (Reported) Ibuprofen (Advil Migraine) 200 MG CAPSULE 3-4 CAP PO BID PAIN (Reported) Lamotrigine 25 MG TABLET 1 TAB PO AD MOOD (Reported) Naltrexone HCl 50 MG TABLET 1 TAB PO DAILY MENTAL HEALTH (Reported) Nicotine (Nicotine Patch) 21 MG/24 HOUR PATCH.TD24 21 MG TOP DAILY nicotine cessation Apply 1 patch topically QAM and remove before HS. Trazodone HCl 100 MG TABLET 100 MG PO AT BEDTIME insomnia Take 1 tab po QHS. Past History Medical History Neurological: NONE EENT: NONE Cardiovascular: hypertension Respiratory: NONE Gastrointestinal: NONE Hepatic: NONE Renal: NONE Musculoskeletal: Crush injury to right hand at work. 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 Psychosocial History Services at Home: None ETOH Use: occasional use Illicit Drug Use: heroin Review of Systems Review of Systems: Review of systems: See HPI, all other systems negative. Constitutional: No chills fever or weight loss HEENT: No visual changes no sore throat no congestion Cardiovascular: No chest pain ,palpitation , orthopnea or ankle swelling Skin: See HPI Respiratory: No dyspnea cough sputum or hemoptysis GI: No nausea no vomiting : No dysuria no hematuria Musclulo skeletal: No back pain no neck pain, Neurologic: No numbness no confusion Psych: No stress anxiety or depression,. Heme/endocrine: No bruising no bleeding no polyuria or polydipsia Immunology: No splenectomy or history of AIDS Exam & Diagnostic Data Vital Signs and I&O Vital Signs Date Time Temp Pulse Resp B/P B/P Pulse O2 O2 Flow FiO2 Mean Ox Delivery Rate 09/03 1911 99.2 90 20 124/60 98 Room Air 09/03 1649 98.9 96 15 147/97 100 Room Air Physical Exam: Well-developed well-nourished no apparent distress. HEENT: Atraumatic, extraocular motion intact Neck: Supple, no lymphadenopathy Respiratory: No respiratory distress Extremities: Left upper extremity, there is fluctuance in the left medial proximal forearm region just distal to the antecubital fossa. There is a hardened superficial vein in this area that patient states is where he usually injects heroin. The fluctuating area is approximately 2 x 2 centimeters, surrounding this there is moderate erythema and induration. The erythema extends to the distal forearm and distal humeral region medial aspect. It is not circumferential. His elbow range of motion is full. He has lymphadenopathy of the left epicondylar region. His left upper extremity is neurovascularly intact. Neuro: Alert and oriented x3 Psych: Mood affect normal, normal memory normal judgment. Skin: Warm and dry, no rash on exposed skin Last 24 Hours of Labs: Laboratory Tests 09/03 1824 Chemistry Sodium (137 - 145 mmol/L) 135 L Potassium (3.5 - 5.1 mmol/L) 3.8 Chloride (98 - 107 mmol/L) 100 Carbon Dioxide (22 - 30 mmol/L) 27 Anion Gap (5 - 16) 8 BUN (9 - 20 mg/dL) 7 L Creatinine (0.7 - 1.2 mg/dL) 0.9 Estimated GFR (>60 ml/min) > 60 BUN/Creatinine Ratio (7 - 25 %) 7.8 Glucose (65 - 99 mg/dL) 126 H Calcium (8.4 - 10.2 mg/dL) 8.9 Total Bilirubin (0.2 - 1.3 mg/dL) 0.8 AST (17 - 59 U/L) 30 ALT (21 - 72 U/L) 38 Alkaline Phosphatase (< 127 U/L) 52 C-Reactive Prot, Quant (<1.0 mg/dL) 6.9 H Total Protein (6.3 - 8.2 g/dL) 6.5 Albumin (3.5 - 5.0 g/dL) 3.8 Globulin (1.9 - 4.2 gm/dL) 2.7 Albumin/Globulin Ratio (1.1 - 2.2 %) 1.4 Hematology CBC w Diff NO MAN DIFF REQ WBC (4.8 - 10.8 /CUMM) 11.6 H RBC (4.70 - 6.10 /CUMM) 4.25 L Hgb (14.0 - 18.0 G/DL) 12.4 L Hct (42 - 52 %) 36.8 L MCV (80.0 - 94.0 FL) 86.7 MCH (27.0 - 31.0 PG) 29.1 RDW (11.5 - 14.5 %) 13.4 Plt Count (130 - 400 /CUMM) 225 MPV (7.4 - 10.4 FL) 9.0 Gran % (42.2 - 75.2 %) 80.3 H Lymphocytes % (20.5 - 51.1 %) 12.2 L Monocytes % (1.7 - 9.3 %) 7.0 Eosinophils % (0 - 5 %) 0.2 Basophils % (0.0 - 2.0 %) 0.3 Absolute Granulocytes (1.4 - 6.5 /CUMM) 9.3 H Absolute Lymphocytes (1.2 - 3.4 /CUMM) 1.4 Absolute Monocytes (0.10 - 0.60 /CUMM) 0.8 H Absolute Eosinophils (0.0 - 0.7 /CUMM) 0 Absolute Basophils (0.0 - 0.2 /CUMM) 0 PUBS MCHC (33.0 - 37.0 G/DL) 33.6 ESR Westergren (0 - 10 MM) 16 H Imaging Results: PATIENT: LAMONTE CHAVEZ PRESENT AGE: 50 PATIENT ACCOUNT NO: [id number] : 65 LOCATION: [facility] ORDERING PHYSICIAN: SHAILA THURSTON SERVICE DATE: 09/03/16 EXAM TYPE: US - US-SUPERFICIAL IMAGING EXTREMI EXAMINATION: US SUPERFICIAL IMAGING, EXTREMITY CLINICAL INFORMATION: IV drug user. Swelling and pain. COMPARISON: None TECHNIQUE: Routine grayscale imaging through the right medial and temporal fossa was performed. FINDINGS: There is a complex fluid collection along the right medial antecubital fossa with surrounding edema and increased vascularity suggestive of an abscess. It measures 3.6 cm wide, 4.7 cm in craniocaudad length and 1.3 cm in AP dimension. IMPRESSION: Findings strongly suspicious for an abscess along the right medial antecubital fossa. DICTATED BY: KEIRY ANTONY,LISA DATE/TIME DICTATED:09/03/161900 SHUTTLECOCK ASSEMBLER:PATRICIA Assessment/Plan Assessment/Plan 50-year-old male, IVDA with abscess to the left proximal forearm secondary to injection of heroin a few days prior. He is medically stable. Discussed with the ER provider, they will perform bedside I&D, obtain cultures and arrange for close follow-up in the next 2 days either with general surgery or back in the ER. He is to return anytime with any systemic symptoms of infection. Recommend obtaining culture, and placing patient on antibiotics, amoxicillin and Bactrim , he received a dose of vancomycin emergency department already. DW Dr Shaffer. Consult Acknowledgment - Thank you for your consult request.
[2016-09-03] MEDS ORDERED: BACTRIM DS TAB1 EACH PO (20:27)
[2016-09-03] MEDS ORDERED: AMOXICILLIN875 M1 PO (20:27)
[2016-09-03 21:02] VITALS: BP 124/66
== END 2016-09-03 21:18 ==
LOC: ERH 16:06
PROVIDERS: Physician Assistant Medical
DX: L02.414 Cutaneous abscess of left upper limb (principal); L03.114 Cellulitis of left upper limb
CPT/HCPCS: 87184; 76881; 87040; 87070; 87071; 87147; 96374; 96375; J1885; J3010; J3370; J7040